=== PATIENT | female | born 1975 | race Caucasian/White ===

== ENCOUNTER 2021-11-28 09:40 | Outpatient (REF) | payer OTHER, SELFPAY ==
[2021-12-01 16:31] LABS: HPV mRNA E6/E7 rflx Not Detected (Not Detected)
== END 2021-11-28 09:41 | disposition home or self-care (01) ==
LOC: HO.LAB 09:40
PROVIDERS: PCP Internal Medicine; Visit Provider Advanced Practice Midwife
DX: Z01.419 Encounter for gynecological examination (general) (routine) without abnormal findings (principal); Z11.51 Encounter for screening for human papillomavirus (HPV)
CPT/HCPCS: 87624; 88142

== ENCOUNTER 2021-12-14 08:51 | Outpatient (REF) | payer OTHER, SELFPAY ==
--- NOTE | ~2021-12-14 | MM_ITS ---
EXAMINATION: MM SCREENING DIGITAL BREAST TOMOSYNTHESIS, BILATERAL CLINICAL INFORMATION: Screening. Asymptomatic. The lifetime risk of breast cancer based on the Tyrer-Cuzick Model is 11%. COMPARISON: Outside mammography: 06/07/2020, 09/04/2017, 08/28/2017 ([facility]) TECHNIQUE: Digital breast tomosynthesis is performed in both the craniocaudal and mediolateral oblique views along with computer-aided detection (CAD). Synthesized 2D images are generated from the tomosynthesis. FINDINGS: The breasts are heterogeneously dense, which may obscure small masses (ACR BI-RADS breast composition Category c). There are no significant masses, abnormal calcifications, or other abnormalities. Parenchymal pattern is similar to prior studies. There is no developing density or architectural abnormality. The axilla and skin contours are unremarkable. No significant changes. MM/MM tomosynthesis screening BI IMPRESSION: No mammographic evidence of malignancy. ASSESSMENT: BI-RADS 1: Negative RECOMMENDATION: Routine annual mammography screening. This patient's information was entered into a reminder system with a target due date for their next mammogram.
== END 2021-12-14 08:52 | disposition home or self-care (01) ==
LOC: HO.MAMMO 08:51
PROVIDERS: PCP Internal Medicine; Visit Provider Internal Medicine
DX: Z12.31 Encounter for screening mammogram for malignant neoplasm of breast (principal)
CPT/HCPCS: 77063; 77067

== ENCOUNTER 2022-01-08 09:12 | Outpatient (REF) | payer OTHER, SELFPAY ==
[2022-01-08 09:50] LABS: MANUAL DIFF FLAG NO
[2022-01-08 10:11] LABS: Basophils Percent Auto 0.8 % (0-2); Eosinophils Absolute Auto 0.1 X10*3/uL (0.0-0.4); Eosinophils Percent Auto 1.6 % (0-4); Hematocrit 38.8 % (37.0-47.0); Imm Gran Abs Auto 0.01 X10*3/uL (0.00-0.03); Imm Gran Pct Auto 0.2 % (0.0-0.4); Lymphocytes Absolute Auto 1.7 X10*3/uL (1.2-4.9); Lymphocytes Percent Auto 34.7 % (20-40); Mean Corpuscular HGB Conc 33.5 g/dl (31.0-35.0); Mean Corpuscular Hemoglobin 29.2 pg (27.0-33.0); Mean Corpuscular Volume 87.2 fL (80.0-98.0); Mean Platelet Volume 9.1 fL (9.4-12.3); Monocytes Absolute Auto 0.6 X10*3/uL (0.1-1.2); Monocytes Percent Auto 11.4 % (2-11); Neutrophils Absolute Auto 2.5 x10*3/uL (2.0-8.3); Neutrophils Percent Auto 51.3 % (45-73); Platelet Count 408 X10*3/uL (160-400); Red Blood Count 4.45 X10*6/uL (4.20-5.50); Red Cell Distribution Width 12.8 % (11.0-16.0); White Blood Count 4.9 X10*3/uL (4.8-10.8)
[2022-01-08 10:45] LABS: Alanine Aminotransferase 8 U/L (0-31); Albumin Level 4.1 g/dL (3.5-5.0); Alkaline Phosphatase 51 U/L (39-117); Anion Gap 12 (12-20); Aspartate Amino Transferase 13 U/L (5-31); Bilirubin Total 0.7 mg/dL (0.0-1.0); Blood Urea Nitrogen 13 mg/dL (9-16); Carbon Dioxide 24 mmol/L (22-29); Chloride 107 mmol/L (96-108); Cholesterol 210 mg/dL; Estimated Glomerular Filt Rate > 60; Glucose Fasting 96 mg/dL (60-99); HDL Cholesterol 46 mg/dL; LDL Cholesterol Calculated 149 mg/dl; Potassium 4.8 mmol/L (3.3-5.1); Sodium 138 mmol/L (135-145); Total Protein 7.4 g/dL (6.5-8.0); Triglycerides 78 mg/dL
[2022-01-08 11:06] LABS: Thyroid Stimulating Hormone 0.48 uIU/mL (0.32-4.0)
[2022-01-09 09:12] LABS: Thyroglobulin Antibodies <1 IU/mL (< or = 1); Thyroid Peroxidase Antibodies 26 IU/mL (<9)
[2022-01-12 14:25] LABS: Vitamin D 25-OH, D2 <4 ng/mL; Vitamin D 25-OH, D3 25 ng/mL; Vitamin D 25-OH, Total 25 ng/mL (30-100)
== END 2022-01-08 09:13 | disposition home or self-care (01) ==
LOC: HO.LAB 09:12
PROVIDERS: PCP Internal Medicine; Visit Provider Internal Medicine
DX: E66.3 Overweight (principal); E07.9 Disorder of thyroid, unspecified; R42 Dizziness and giddiness; E55.9 Vitamin D deficiency, unspecified
CPT/HCPCS: 36415; 80053; 80061; 82306; 84439; 84443; 85025; 86376; 86800

== ENCOUNTER → 2022-06-24 09:50 | Outpatient (BNVA) | payer OTHER, SELFPAY | PROVIDERS: PCP Physician Assistant; Visit Provider Physician Assistant | DX: Z12.11 Encounter for screening for malignant neoplasm of colon (principal) | CPT/HCPCS: 99202 ==

== ENCOUNTER 2022-07-23 09:56 | Outpatient (REF) | payer OTHER, SELFPAY ==
[2022-07-23 10:03] LABS: MANUAL DIFF FLAG NO
[2022-07-23 10:24] LABS: Basophils Absolute Auto 0.1 X10*3/uL (0.0-0.2); Basophils Percent Auto 1.1 % (0-2); Eosinophils Absolute Auto 0.1 X10*3/uL (0.0-0.4); Eosinophils Percent Auto 1.3 % (0-4); Hematocrit 39.6 % (37.0-47.0); Hemoglobin 13.2 g/dl (12.0-16.0); Imm Gran Abs Auto 0.01 X10*3/uL (0.00-0.03); Imm Gran Pct Auto 0.2 % (0.0-0.4); Lymphocytes Absolute Auto 1.8 X10*3/uL (1.2-4.9); Lymphocytes Percent Auto 34.1 % (20-40); Mean Corpuscular HGB Conc 33.3 g/dl (31.0-35.0); Mean Corpuscular Hemoglobin 28.8 pg (27.0-33.0); Mean Corpuscular Volume 86.5 fL (80.0-98.0); Mean Platelet Volume 9.2 fL (9.4-12.3); Monocytes Absolute Auto 0.6 X10*3/uL (0.1-1.2); Monocytes Percent Auto 10.9 % (2-11); Neutrophils Absolute Auto 2.8 x10*3/uL (2.0-8.3); Neutrophils Percent Auto 52.4 % (45-73); Platelet Count 369 X10*3/uL (160-400); Red Blood Count 4.58 X10*6/uL (4.20-5.50); Red Cell Distribution Width 12.4 % (11.0-16.0); White Blood Count 5.3 X10*3/uL (4.8-10.8)
[2022-07-23 10:59] LABS: Cholesterol 240 mg/dL; HDL Cholesterol 58 mg/dL; LDL Cholesterol Calculated 163 mg/dl; Triglycerides 95 mg/dL
[2022-07-23 11:12] LABS: Free T4 (Free Thyroxine) 1.24 ng/dL (0.71-1.85); Thyroid Stimulating Hormone 0.82 uIU/mL (0.32-4.0)
[2022-07-24 17:21] LABS: Thyroglobulin Antibodies <1 IU/mL (< or = 1)
[2022-07-24 21:25] LABS: Thyroid Peroxidase Antibodies 18 IU/mL (<9)
[2022-07-27 14:56] LABS: Vitamin D 25-OH, D2 <4 ng/mL; Vitamin D 25-OH, D3 25 ng/mL; Vitamin D 25-OH, Total 25 ng/mL (30-100)
== END 2022-07-23 09:57 | disposition home or self-care (01) ==
LOC: HO.LAB 09:56
PROVIDERS: PCP Internal Medicine; Visit Provider Internal Medicine
DX: E07.9 Disorder of thyroid, unspecified (principal); E06.3 Autoimmune thyroiditis; E78.5 Hyperlipidemia, unspecified; E55.9 Vitamin D deficiency, unspecified; E66.3 Overweight
CPT/HCPCS: 36415; 80061; 82306; 84439; 84443; 85025; 86376; 86800

== ENCOUNTER 2022-12-03 10:31 | Outpatient (REF) | payer OTHER, SELFPAY | END 2022-12-03 10:32 | disposition home or self-care (01) | LOC: HO.LAB 10:31 | PROVIDERS: PCP Internal Medicine; Visit Provider Advanced Practice Midwife | DX: Z01.419 Encounter for gynecological examination (general) (routine) without abnormal findings (principal); L73.9 Follicular disorder, unspecified | CPT/HCPCS: 87070; 87077; 87102; 87186; 87205 ==

== ENCOUNTER 2023-01-02 15:00 | Emergency (ER) | payer OTHER, SELFPAY ==
--- NOTE | ~2023-01-02 | XR_ITS ---
EXAMINATION: XR CHEST CLINICAL INFORMATION: Left-sided jaw pain. COMPARISON: None TECHNIQUE: 2 views of the chest were obtained. FINDINGS: No significant abnormality is noted involving the heart, lungs, mediastinum, bony thorax or soft tissues. XR/XR chest 2V IMPRESSION: No acute cardiopulmonary process.
--- NOTE | ~2023-01-02 | XR_ITS ---
EXAMINATION: XR SINUSES CLINICAL INFORMATION: Left-sided jaw pain COMPARISON: None TECHNIQUE: 4 FINDINGS: Paranasal sinuses appear clear without air-fluid levels. No fractures are identified. No radiodense foreign bodies. XR/XR sinus min 3V IMPRESSION: Unremarkable examination.
[2023-01-02 15:16] VITALS: BP 173/98; PULSE 75; RESP 18; TEMP 36.4; O2SAT 100; BMI 22.8
--- NOTE | 2023-01-02 15:16 | ED_ITS ---
HPI - General Adult General Chief complaint: General Medical <ALYSA Burns - Last Filed: 01/02/23 15:21> Stated complaint: jaw pain ,sinus pain <ALYSA Burns - Last Filed: 01/02/23 15:21> Time Seen by Provider: 01/02/23 16:36 <ALYSA Burns - Last Filed: 01/02/23 15:21> Source: patient <Reed Lewis MD - Last Filed: 01/02/23 18:39> Mode of arrival: ambulatory <Reed Lewis MD - Last Filed: 01/02/23 18:39> Limitations: no limitations <Reed Lewis MD - Last Filed: 01/02/23 18:39> History of Present Illness HPI narrative: seen yesterday by dentist for left mandible pain. No infection seen, TMJ was diagnosed. Now with increasing pain. <Reed Lewis MD - Last Filed: 01/02/23 18:39> Onset (ago): day(s) (4) <Reed Lewis MD - Last Filed: 01/02/23 18:39> Severity: mild <Reed Lewis MD - Last Filed: 01/02/23 18:39> Related Data Home medications: Home Medications Medication Instructions Recorded Confirmed omega-3 fatty acids 500 mg capsule 500 mg PO DAILY 01/23/22 08/01/22 Previous Rx's Medication Instructions Recorded cholecalciferol (vitamin D3) 25 25 mcg PO DAILY 90 days #90 caps 10/13/22 mcg (1,000 unit) capsule levothyroxine 75 mcg tablet 75 mcg PO DAILY 90 days #90 tabs 10/13/22 mupirocin calcium 2 % topical cream 1 appl topical BID 7 days #30 grams 12/06/22 amoxicillin 875 mg-potassium 1 tab PO BID #20 tabs 01/02/23 clavulanate 125 mg tablet <ALYAS Burns - Last Filed: 01/02/23 15:21> Allergies/adverse reactions: Allergies Allergy/AdvReac Type Severity Reaction Status Date / Time No Known Allergies Allergy Verified 01/02/23 15:15 <ALYSA Burns - Last Filed: 01/02/23 15:21> Review of Systems Review of Systems: Yes all other systems are reviewed and are negative <Reed Lewis MD - Last Filed: 01/02/23 18:39> ENT: Reports other (left mandible) <Reed Lewis MD - Last Filed: 01/02/23 18:39> [facility] Past Medical History Medical History: Medical History BPPV (benign paroxysmal positional vertigo) 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 Hypovitaminosis D Overweight (BMI 25.0-29.9) Physical exam <ALYSA Burns - Last Filed: 01/02/23 15:21> Surgical History: Surgical History History of appendectomy <ALYSA Burns - Last Filed: 01/02/23 15:21> Family History Family History: Family History Mother Hypercholesteremia Breast lump Father Heart attack Melanoma Hypercholesteremia Stroke <ALYSA Burns - Last Filed: 01/02/23 15:21> Social History Social History: Social History Housing: Apartment Alcohol intake: current Alcohol intake frequency: a few times a week Alcohol type: wine Patient Tobacco Use Status: Never used Tobacco e-Cigarette/Vaping Use: Never Used Second Hand Smoke Exposure: No Use of substances other than those prescribed or required for medical reasons: No Any prior treatment program specific to substance use: No Advance Directives: No Advance Directives Information Provided: No Patient : No service: No Current occupational status: employed 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 Current occupational exposures/hazards: No Sexual orientation: Lesbian/Falcon/Homosexual Gender identity: Female Cognitive needs: No Hearing needs: No Vision needs: No <ALYSA Burns - Last Filed: 01/02/23 15:21> Physical Exam ED Vital Signs: Vital Signs - 24 hr 01/02/23 15:16 Temperature 97.5 F Pulse Rate 75 Respiratory Rate 18 Blood Pressure 173/98 H Pulse Oximetry 100 Oxygen Delivery Method Room Air BMI result Body Mass Index 22.8 <ALYSA Burns - Last Filed: 01/02/23 15:21> Vital Signs - 24 hr 01/02/23 15:16 Temperature 97.5 F Pulse Rate 75 Respiratory Rate 18 Blood Pressure 173/98 H Pulse Oximetry 100 Oxygen Delivery Method Room Air BMI result Body Mass Index 22.8 <Reed Lewis MD - Last Filed: 01/02/23 18:39> Const General: healthy appearing <Reed Lewis MD - Last Filed: 01/02/23 18:39> Nutritional Appearance: average body habitus <Reed Lewis MD - Last Filed: 01/02/23 18:39> Orientation/consciousness: oriented to person and patient oriented x3 <Reed Lewis MD - Last Filed: 01/02/23 18:39> Limitations: no limitations <Reed Lewis MD - Last Filed: 01/02/23 18:39> HENMT Other: tenderness along mandible no swelling or erythema <Reed Lewis MD - Last Filed: 01/02/23 18:39> Head: Yes normal to inspection <Reed Lewis MD - Last Filed: 01/02/23 18:39> Ears: external ears normal <Reed Lewis MD - Last Filed: 01/02/23 18:39> General nose exam: Normal external nose present <Reed Lewis MD - Last Filed: 01/02/23 18:39> Mouth: Normal oral and palatal mucosa present and oropharynx normal <Reed Lewis MD - Last Filed: 01/02/23 18:39> Throat: Yes posterior oropharynx normal <Reed Lewis MD - Last Filed: 01/02/23 18:39> Eyes General: appearance normal, both eyes and all related structures <Reed Lewis MD - Last Filed: 01/02/23 18:39> Neck Neck: Yes normal visual inspection <Reed Lewis MD - Last Filed: 01/02/23 18:39> Chest Chest palpation & inspection: normal inspection of the chest <Reed Lewis MD - Last Filed: 01/02/23 18:39> Resp Auscultation: clear to auscultation bilaterally <Reed Lewis MD - Last Filed: 01/02/23 18:39> Cardio Jugular venous distension: no JVD <Reed Lewis MD - Last Filed: 01/02/23 18:39> Rate: regular rate <Reed Lewis MD - Last Filed: 01/02/23 18:39> Rhythm: regular rhythm <Reed Lewis MD - Last Filed: 01/02/23 18:39> Heart sounds: S1 normal heart sound present and S2 normal heart sound present <Reed Lewis MD - Last Filed: 01/02/23 18:39> GI Inspection: Yes normal to inspection <Reed Lewis MD - Last Filed: 01/02/23 18:39> Palpation (GI): Soft to palpation, nontender and No hepatosplenomegaly present <Reed Lewis MD - Last Filed: 01/02/23 18:39> Auscultation: normal bowel sounds <Reed Lewis MD - Last Filed: 01/02/23 18:39> General: Yes no CVA tenderness <Reed Lewis MD - Last Filed: 01/02/23 18:39> Back/Spine/Pelvis Back: no CVA tenderness <Reed Lewis MD - Last Filed: 01/02/23 18:39> Skin General skin exam: no rashes or lesions noted <Reed Lewis MD - Last Filed: 01/02/23 18:39> Neuro General: oriented to person and patient oriented x3 <Reed Lewis MD - Last Filed: 01/02/23 18:39> Cranial nerves: Yes CN's II-XII intact bilaterally <Reed Lewis MD - Last Filed: 01/02/23 18:39> Motor exam (neuro): 5/5 motor strength present throughout <Reed Lewis MD - Last Filed: 01/02/23 18:39> Extrem General: Yes normal to inspection <Reed Lewis MD - Last Filed: 01/02/23 18:39> Psych Appearance: grossly normal <Reed Lewis MD - Last Filed: 01/02/23 18:39> Course Course Course Narrative: RME-15:20pm 47yoF with PMHx of HLD and Danny's thyroiditis who is presenting to the ER with complaints of left-sided jaw pain that has been present since Friday that is progressively worsening although intermittent. Reports that she went to the dentist yesterday and they told her was not related to her teeth. She denies any dizziness, change in vision, recent falls or trauma, chest pain or shortness of breath, rashes, paresthesias, palpitations, nausea/vomiting, rashes, recent falls or trauma, dental pain or any other symptoms complaints or concerns at this time. Plan: Will obtain labs, chest x-ray and EKG. Patient sent back to the waiting room to be evaluated in the ED. <ALYSA Burns - Last Filed: 01/02/23 15:21> Reevaluation(s) Reevaluation #1: with elevated WBC and pain along mandible will treat for infection <Reed Lewis MD - Last Filed: 01/02/23 18:39> Time: 18:37 <Reed Lewis MD - Last Filed: 01/02/23 18:39> Medications Administered Discontinued Medications Generic Name Dose Route Start Last Admin Trade Name Freq PRN Reason Stop Dose Admin Amoxicillin/Clavulanate Potassium 875 mg 01/02/23 17:34 01/02/23 17:41 Amoxicillin/Potassium Clav 875 Mg Tablet PO 01/02/23 17:35 875 mg ONCE ONE Administration Ketorolac Tromethamine 30 mg 01/02/23 17:44 01/02/23 18:11 Ketorolac Tromethamine 30 Mg/Ml Vial IM 01/02/23 17:45 30 mg ONCE ONE Administration <ALYSA Burns - Last Filed: 01/02/23 15:21> Medications Administered Discontinued Medications Generic Name Dose Route Start Last Admin Trade Name Freq PRN Reason Stop Dose Admin Amoxicillin/Clavulanate Potassium 875 mg 01/02/23 17:34 01/02/23 17:41 Amoxicillin/Potassium Clav 875 Mg Tablet PO 01/02/23 17:35 875 mg ONCE ONE Administration Ketorolac Tromethamine 30 mg 01/02/23 17:44 01/02/23 18:11 Ketorolac Tromethamine 30 Mg/Ml Vial IM 01/02/23 17:45 30 mg ONCE ONE Administration <Reed Lewis MD - Last Filed: 01/02/23 18:39> Medical Decision Making Differential Diagnosis TMJ syndrome, sinusitis, dental infection <Reed Lewis MD - Last Filed: 01/02/23 18:39> Lab Data [facility] Lab Attestation statement: I reviewed the patient's lab results. <Reed Lewis MD - Last Filed: 01/02/23 18:39> very elevated WBC most likely secondary to infection <Reed Lewis MD - Last Filed: 01/02/23 18:39> Result Diagrams: 01/02/23 15:54 01/02/23 15:54 <ALYSA Burns - Last Filed: 01/02/23 15:21> Labs: Lab Results 01/02/23 01/02/23 01/02/23 Range/Units 15:54 15:54 15:54 WBC 16.4 H (4.8-10.8) X10*3/uL RBC 4.40 (4.20-5.50) X10*6/uL Hgb 12.9 (12.0-16.0) g/dl Hct 38.8 (37.0-47.0) % MCV 88.2 (80.0-98.0) fL MCH 29.3 (27.0-33.0) pg MCHC 33.2 (31.0-35.0) g/dl RDW 12.1 (11.0-16.0) % Plt Count 384 (160-400) X10*3/uL MPV 9.2 L (9.4-12.3) fL Immature Gran % (Auto) 0.4 (0.0-0.4) % Neut % (Auto) 80.6 H (45-73) % Lymph % (Auto) 10.5 L (20-40) % [place] % (Auto) 7.7 (2-11) % Eos % (Auto) 0.3 (0-4) % Baso % (Auto) 0.5 (0-2) % Lymph # (Auto) 1.7 (1.2-4.9) X10*3/uL [place] # (Auto) 1.3 H (0.1-1.2) X10*3/uL Eos # (Auto) 0.1 (0.0-0.4) X10*3/uL Baso # (Auto) 0.1 (0.0-0.2) X10*3/uL Abs Immat Gran (auto) 0.06 H (0.00-0.03) X10*3/uL Absolute Neuts (auto) 13.2 H (2.0-8.3) x10*3/uL Absolute Nucleated RBC 0.000 (0.0-0.012) X10*3/uL Nucleated RBC % (auto) 0.0 (0.0-0.2) /100WBC PT 11.4 (10.0-13.1) SEC INR 1.0 (0.9-1.1) Sodium 140 (135-145) mmol/L Potassium 3.8 D (3.3-5.1) mmol/L Chloride 108 (96-108) mmol/L Carbon Dioxide 23 (22-29) mmol/L Anion Gap 13 (12-20) BUN 9 (9-16) mg/dL Creatinine 0.71 (0.5-1.4) mg/dL Estim Creat Clear Calc 86.4 Estimated GFR > 60 Random Glucose 92 (60-115) mg/dL Calcium 9.0 (8.4-10.2) mg/dL Magnesium 2.0 (1.6-2.6) mg/dL Total Bilirubin 0.6 (0.0-1.0) mg/dL AST 14 (5-31) U/L ALT 14 (0-31) U/L Alkaline Phosphatase 53 (39-117) U/L Troponin I High Sens (<3.5-17.0) ng/L Total Protein 7.4 (6.5-8.0) g/dL Albumin 4.3 (3.5-5.0) g/dL TSH 0.51 (0.32-4.0) uIU/mL Influenza Type A (PCR) (Negative) Influenza Type B (PCR) (Negative) RSV RNA Qual (PCR) (Negative) SARS-CoV-2 RNA (RT-PCR) (Negative) 01/02/23 01/02/23 Range/Units 15:54 15:54 WBC (4.8-10.8) X10*3/uL RBC (4.20-5.50) X10*6/uL Hgb (12.0-16.0) g/dl Hct (37.0-47.0) % MCV (80.0-98.0) fL MCH (27.0-33.0) pg MCHC (31.0-35.0) g/dl RDW (11.0-16.0) % Plt Count (160-400) X10*3/uL MPV (9.4-12.3) fL Immature Gran % (Auto) (0.0-0.4) % Neut % (Auto) (45-73) % Lymph % (Auto) (20-40) % [place] % (Auto) (2-11) % Eos % (Auto) (0-4) % Baso % (Auto) (0-2) % Lymph # (Auto) (1.2-4.9) X10*3/uL [place] # (Auto) (0.1-1.2) X10*3/uL Eos # (Auto) (0.0-0.4) X10*3/uL Baso # (Auto) (0.0-0.2) X10*3/uL Abs Immat Gran (auto) (0.00-0.03) X10*3/uL Absolute Neuts (auto) (2.0-8.3) x10*3/uL Absolute Nucleated RBC (0.0-0.012) X10*3/uL Nucleated RBC % (auto) (0.0-0.2) /100WBC PT (10.0-13.1) SEC INR (0.9-1.1) Sodium (135-145) mmol/L Potassium (3.3-5.1) mmol/L Chloride (96-108) mmol/L Carbon Dioxide (22-29) mmol/L Anion Gap (12-20) BUN (9-16) mg/dL Creatinine (0.5-1.4) mg/dL Estim Creat Clear Calc Estimated GFR Random Glucose (60-115) mg/dL Calcium (8.4-10.2) mg/dL Magnesium (1.6-2.6) mg/dL Total Bilirubin (0.0-1.0) mg/dL AST (5-31) U/L ALT (0-31) U/L Alkaline Phosphatase (39-117) U/L Troponin I High Sens < 3.5 (<3.5-17.0) ng/L Total Protein (6.5-8.0) g/dL Albumin (3.5-5.0) g/dL TSH (0.32-4.0) uIU/mL Influenza Type A (PCR) NEGATIVE (Negative) Influenza Type B (PCR) NEGATIVE (Negative) RSV RNA Qual (PCR) NEGATIVE (Negative) SARS-CoV-2 RNA (RT-PCR) NEGATIVE (Negative) <ALYSA Burns - Last Filed: 01/02/23 15:21> Lab Results 01/02/23 01/02/23 01/02/23 Range/Units 15:54 15:54 15:54 WBC 16.4 H (4.8-10.8) X10*3/uL RBC 4.40 (4.20-5.50) X10*6/uL Hgb 12.9 (12.0-16.0) g/dl Hct 38.8 (37.0-47.0) % MCV 88.2 (80.0-98.0) fL MCH 29.3 (27.0-33.0) pg MCHC 33.2 (31.0-35.0) g/dl RDW 12.1 (11.0-16.0) % Plt Count 384 (160-400) X10*3/uL MPV 9.2 L (9.4-12.3) fL Immature Gran % (Auto) 0.4 (0.0-0.4) % Neut % (Auto) 80.6 H (45-73) % Lymph % (Auto) 10.5 L (20-40) % [place] % (Auto) 7.7 (2-11) % Eos % (Auto) 0.3 (0-4) % Baso % (Auto) 0.5 (0-2) % Lymph # (Auto) 1.7 (1.2-4.9) X10*3/uL [place] # (Auto) 1.3 H (0.1-1.2) X10*3/uL Eos # (Auto) 0.1 (0.0-0.4) X10*3/uL Baso # (Auto) 0.1 (0.0-0.2) X10*3/uL Abs Immat Gran (auto) 0.06 H (0.00-0.03) X10*3/uL Absolute Neuts (auto) 13.2 H (2.0-8.3) x10*3/uL Absolute Nucleated RBC 0.000 (0.0-0.012) X10*3/uL Nucleated RBC % (auto) 0.0 (0.0-0.2) /100WBC PT 11.4 (10.0-13.1) SEC INR 1.0 (0.9-1.1) Sodium 140 (135-145) mmol/L Potassium 3.8 D (3.3-5.1) mmol/L Chloride 108 (96-108) mmol/L Carbon Dioxide 23 (22-29) mmol/L Anion Gap 13 (12-20) BUN 9 (9-16) mg/dL Creatinine 0.71 (0.5-1.4) mg/dL Estim Creat Clear Calc 86.4 Estimated GFR > 60 Random Glucose 92 (60-115) mg/dL Calcium 9.0 (8.4-10.2) mg/dL Magnesium 2.0 (1.6-2.6) mg/dL Total Bilirubin 0.6 (0.0-1.0) mg/dL AST 14 (5-31) U/L ALT 14 (0-31) U/L Alkaline Phosphatase 53 (39-117) U/L Troponin I High Sens (<3.5-17.0) ng/L Total Protein 7.4 (6.5-8.0) g/dL Albumin 4.3 (3.5-5.0) g/dL TSH 0.51 (0.32-4.0) uIU/mL Influenza Type A (PCR) (Negative) Influenza Type B (PCR) (Negative) RSV RNA Qual (PCR) (Negative) SARS-CoV-2 RNA (RT-PCR) (Negative) 01/02/23 01/02/23 Range/Units 15:54 15:54 WBC (4.8-10.8) X10*3/uL RBC (4.20-5.50) X10*6/uL Hgb (12.0-16.0) g/dl Hct (37.0-47.0) % MCV (80.0-98.0) fL MCH (27.0-33.0) pg MCHC (31.0-35.0) g/dl RDW (11.0-16.0) % Plt Count (160-400) X10*3/uL MPV (9.4-12.3) fL Immature Gran % (Auto) (0.0-0.4) % Neut % (Auto) (45-73) % Lymph % (Auto) (20-40) % [place] % (Auto) (2-11) % Eos % (Auto) (0-4) % Baso % (Auto) (0-2) % Lymph # (Auto) (1.2-4.9) X10*3/uL [place] # (Auto) (0.1-1.2) X10*3/uL Eos # (Auto) (0.0-0.4) X10*3/uL Baso # (Auto) (0.0-0.2) X10*3/uL Abs Immat Gran (auto) (0.00-0.03) X10*3/uL Absolute Neuts (auto) (2.0-8.3) x10*3/uL Absolute Nucleated RBC (0.0-0.012) X10*3/uL Nucleated RBC % (auto) (0.0-0.2) /100WBC PT (10.0-13.1) SEC INR (0.9-1.1) Sodium (135-145) mmol/L Potassium (3.3-5.1) mmol/L Chloride (96-108) mmol/L Carbon Dioxide (22-29) mmol/L Anion Gap (12-20) BUN (9-16) mg/dL Creatinine (0.5-1.4) mg/dL Estim Creat Clear Calc Estimated GFR Random Glucose (60-115) mg/dL Calcium (8.4-10.2) mg/dL Magnesium (1.6-2.6) mg/dL Total Bilirubin (0.0-1.0) mg/dL AST (5-31) U/L ALT (0-31) U/L Alkaline Phosphatase (39-117) U/L Troponin I High Sens < 3.5 (<3.5-17.0) ng/L Total Protein (6.5-8.0) g/dL Albumin (3.5-5.0) g/dL TSH (0.32-4.0) uIU/mL Influenza Type A (PCR) NEGATIVE (Negative) Influenza Type B (PCR) NEGATIVE (Negative) RSV RNA Qual (PCR) NEGATIVE (Negative) SARS-CoV-2 RNA (RT-PCR) NEGATIVE (Negative) <Reed Lewis MD - Last Filed: 01/02/23 18:39> Independent Interpretation I performed an independent interpretation of an: Plain X-Ray (sinus films no sinusitus appreciated) <Reed Lewis MD - Last Filed: 01/02/23 18:39> Tests considered The following testing was considered but not selected: CT of face and jaw considered but patient currenlty is stable will treat empirically with abx <Reed Lewis MD - Last Filed: 01/02/23 18:39> Discharge Plan Discharge Clinical Impression: Dental infection <ALYSA Burns - Last Filed: 01/02/23 15:21> Patient Disposition: Home, Self-Care <ALYSA Burns - Last Filed: 01/02/23 15:21> Instructions: Dental Abscess (ED) <ALYSA Burns - Last Filed: 01/02/23 15:21> Prescriptions: New amoxicillin-pot clavulanate 875-125 mg tablet 1 tab PO BID Qty: 20 0RF No Action cholecalciferol (vitamin D3) 25 mcg (1,000 unit) capsule 25 mcg PO DAILY 90 Days Qty: 90 0RF levothyroxine 75 mcg tablet 75 mcg PO DAILY 90 Days Qty: 90 0RF mupirocin calcium 2 % cream 1 appl topical BID 7 Days Qty: 30 1RF Rx Instructions: apply a thin coat to the area for up to 7 days omega-3 fatty acids 500 mg capsule 500 mg PO DAILY Rx Instructions: 800mg EPA and 600mg DHA <ALYSA Burns - Last Filed: 01/02/23 15:21> Referrals: Tresa Barksdale MD [Primary Care Provider] - 1 week <ALYSA Burns - Last Filed: 01/02/23 15:21>
--- NOTE | 2023-01-02 15:18 | ECG_ITS ---
Test Reason : left sided jaw pain Blood Pressure : / mmHG Vent. Rate : 067 BPM Atrial Rate : 067 BPM P-R Int : 122 ms QRS Dur : 090 ms QT Int : 410 ms P-R-T Axes : 063 042 043 degrees QTc Int : 433 ms Normal sinus rhythm Normal ECG No previous ECGs available Referred By: Alysia David Electronically Signed By:Jude Robbins
[2023-01-02 16:02] LABS: MANUAL DIFF FLAG NO
[2023-01-02 16:09] LABS: Basophils Absolute Auto 0.1 X10*3/uL (0.0-0.2); Basophils Percent Auto 0.5 % (0-2); Eosinophils Absolute Auto 0.1 X10*3/uL (0.0-0.4); Eosinophils Percent Auto 0.3 % (0-4); Hematocrit 38.8 % (37.0-47.0); Hemoglobin 12.9 g/dl (12.0-16.0); Imm Gran Abs Auto 0.06 X10*3/uL (0.00-0.03); Imm Gran Pct Auto 0.4 % (0.0-0.4); Lymphocytes Absolute Auto 1.7 X10*3/uL (1.2-4.9); Lymphocytes Percent Auto 10.5 % (20-40); Mean Corpuscular HGB Conc 33.2 g/dl (31.0-35.0); Mean Corpuscular Hemoglobin 29.3 pg (27.0-33.0); Mean Corpuscular Volume 88.2 fL (80.0-98.0); Mean Platelet Volume 9.2 fL (9.4-12.3); Monocytes Absolute Auto 1.3 X10*3/uL (0.1-1.2); Monocytes Percent Auto 7.7 % (2-11); Neutrophils Absolute Auto 13.2 x10*3/uL (2.0-8.3); Neutrophils Percent Auto 80.6 % (45-73); Platelet Count 384 X10*3/uL (160-400); Red Cell Distribution Width 12.1 % (11.0-16.0); White Blood Count 16.4 X10*3/uL (4.8-10.8)
[2023-01-02 16:16] LABS: Prothrombin Time 11.4 SEC (10.0-13.1)
[2023-01-02 16:32] LABS: Alanine Aminotransferase 14 U/L (0-31); Albumin Level 4.3 g/dL (3.5-5.0); Alkaline Phosphatase 53 U/L (39-117); Anion Gap 13 (12-20); Aspartate Amino Transferase 14 U/L (5-31); Bilirubin Total 0.6 mg/dL (0.0-1.0); Blood Urea Nitrogen 9 mg/dL (9-16); Carbon Dioxide 23 mmol/L (22-29); Chloride 108 mmol/L (96-108); Creatinine Clr Calc Pharmacy 86.4; Estimated Glomerular Filt Rate > 60; Glucose Random 92 mg/dL (60-115); Potassium 3.8 mmol/L (3.3-5.1); Sodium 140 mmol/L (135-145); Total Protein 7.4 g/dL (6.5-8.0)
[2023-01-02 16:37] LABS: Troponin-I High Sensitivity < 3.5 ng/L (<3.5-17.0)
[2023-01-02 16:43] LABS: Influenza A PCR NEGATIVE (Negative); Influenza B PCR NEGATIVE (Negative); Resp Syncy Virus RNA Qual PCR NEGATIVE (Negative); SARS COV2 PCR INHOUSE NEGATIVE (Negative)
[2023-01-02 16:49] LABS: TSH reflex Free T4 0.51 uIU/mL (0.32-4.0)
[2023-01-02] MEDS: Amoxicillin/Potassium Clav 875 MG TABLET PO (17:41)
[2023-01-02] MEDS: Ketorolac Tromethamine 30 MG/ML VIAL IM (18:11)
== END 2023-01-02 18:55 | disposition home or self-care (01) ==
PROVIDERS: Physician Assistant Medical; Emergency Provider Emergency Medicine; PCP Internal Medicine
DX: K04.7 Periapical abscess without sinus (principal); R68.84 Jaw pain; J34.89 Other specified disorders of nose and nasal sinuses; Z20.822 Contact with and (suspected) exposure to COVID-19; Z20.828 Contact with and (suspected) exposure to other viral communicable diseases; Z79.899 Other long term (current) drug therapy
CPT/HCPCS: 0241U; 70220; 71046; 80053; 83735; 84443; 84484; 85025; 85610; 93005; 96372; 99284; J1885

== ENCOUNTER 2023-03-26 08:54 | Outpatient (REF) | payer OTHER, SELFPAY ==
[2023-03-26 09:25] LABS: MANUAL DIFF FLAG NO
[2023-03-26 09:32] LABS: Basophils Absolute Auto 0.1 X10*3/uL (0.0-0.2); Basophils Percent Auto 1.1 % (0-2); Eosinophils Absolute Auto 0.1 X10*3/uL (0.0-0.4); Eosinophils Percent Auto 2.1 % (0-4); Hematocrit 38.9 % (37.0-47.0); Hemoglobin 13.1 g/dl (12.0-16.0); Imm Gran Abs Auto 0.01 X10*3/uL (0.00-0.03); Imm Gran Pct Auto 0.2 % (0.0-0.4); Lymphocytes Absolute Auto 1.8 X10*3/uL (1.2-4.9); Lymphocytes Percent Auto 34.3 % (20-40); Mean Corpuscular HGB Conc 33.7 g/dl (31.0-35.0); Mean Corpuscular Hemoglobin 29.2 pg (27.0-33.0); Mean Corpuscular Volume 86.6 fL (80.0-98.0); Mean Platelet Volume 9.3 fL (9.4-12.3); Monocytes Absolute Auto 0.6 X10*3/uL (0.1-1.2); Monocytes Percent Auto 11.6 % (2-11); Neutrophils Absolute Auto 2.7 x10*3/uL (2.0-8.3); Neutrophils Percent Auto 50.7 % (45-73); Platelet Count 389 X10*3/uL (160-400); Red Blood Count 4.49 X10*6/uL (4.20-5.50); Red Cell Distribution Width 12.1 % (11.0-16.0); White Blood Count 5.3 X10*3/uL (4.8-10.8)
[2023-03-26 10:32] LABS: Alanine Aminotransferase 12 U/L (0-31); Albumin Level 4.3 g/dL (3.5-5.0); Alkaline Phosphatase 54 U/L (39-117); Anion Gap 11 (12-20); Aspartate Amino Transferase 16 U/L (5-31); Blood Urea Nitrogen 12 mg/dL (9-16); Calcium 9.1 mg/dL (8.4-10.2); Carbon Dioxide 24 mmol/L (22-29); Chloride 108 mmol/L (96-108); Cholesterol 222 mg/dL; Estimated Glomerular Filt Rate > 60; Glucose Fasting 93 mg/dL (60-99); HDL Cholesterol 48 mg/dL; LDL Cholesterol Calculated 161 mg/dl; Potassium 4.7 mmol/L (3.3-5.1); Sodium 138 mmol/L (135-145); Total Protein 7.5 g/dL (6.5-8.0); Triglycerides 68 mg/dL
[2023-03-26 10:36] LABS: Thyroid Stimulating Hormone 0.52 uIU/mL (0.32-4.0); Vitamin D 25-OH Total 26.2 ng/mL (>30)
== END 2023-03-26 08:55 | disposition home or self-care (01) ==
LOC: HO.LAB 08:54
PROVIDERS: PCP Internal Medicine; Visit Provider Nurse Practitioner Family
DX: Z00.00 Encounter for general adult medical examination without abnormal findings (principal); E55.9 Vitamin D deficiency, unspecified; E06.3 Autoimmune thyroiditis; R42 Dizziness and giddiness; E78.5 Hyperlipidemia, unspecified
CPT/HCPCS: 36415; 80053; 80061; 82306; 84443; 85025

== ENCOUNTER 2023-04-02 08:55 | Outpatient (REF) | payer OTHER, SELFPAY ==
--- NOTE | ~2023-04-02 | MM_ITS ---
EXAMINATION: MM SCREENING DIGITAL BREAST TOMOSYNTHESIS, BILATERAL CLINICAL INFORMATION: Screening. Asymptomatic. The lifetime risk of breast cancer based on the Tyrer-Cuzick Model is 20%. COMPARISON: Mammography: 12/14/2021, 06/07/2020, 09/04/2017, 08/28/2017 TECHNIQUE: Digital breast tomosynthesis is performed in both the craniocaudal and mediolateral oblique views along with computer-aided detection (CAD). Synthesized 2D images are generated from the tomosynthesis. FINDINGS: The breasts are heterogeneously dense, which may obscure small masses (ACR BI-RADS breast composition Category c). Right breast parenchymal pattern is similar to prior studies and there is no developing density or architectural abnormality. Neither breast shows abnormal calcifications. The bilateral axilla and skin contours are unremarkable. Left MLO view has an asymmetric density mid upper breast 6 cm from nipple without CC correlate. Finding is most likely summation artifact or incompletely compressed glandular tissue. Patient will be recalled to confirm. MM/MM tomosynthesis screening BI IMPRESSION: Left: -Asymmetric density mid upper breast on MLO view likely summation artifact or incompletely compressed glandular tissue. Right: -No mammographic evidence of malignancy. ASSESSMENT: BI-RADS 0: Incomplete - Need Additional Imaging Evaluation RECOMMENDATION: 1. Additional views left breast (spot MLO, standard ML). 2. Targeted ultrasound if warranted after review of the additional views. 3. Radiology department staff will contact the patient for additional imaging. This patient's information was entered into a reminder system with a target due date for their next mammogram.
== END 2023-04-02 08:56 | disposition home or self-care (01) ==
LOC: HO.MAMMO 08:55
PROVIDERS: PCP Internal Medicine; Visit Provider Internal Medicine
DX: Z12.31 Encounter for screening mammogram for malignant neoplasm of breast (principal)
CPT/HCPCS: 77063; 77067

== ENCOUNTER 2023-04-22 13:47 | Outpatient (REF) | payer OTHER, SELFPAY ==
--- NOTE | ~2023-04-22 | MM_ITS ---
EXAMINATION: MM DIAGNOSTIC DIGITAL BREAST TOMOSYNTHESIS, LEFT CLINICAL INFORMATION: Recall from screening for asymmetric density mid upper left breast on MLO view likely summation artifact or incompletely compressed glandular tissue. Family history breast cancer, mother. TC score 20%. COMPARISON: Prior mammography exams including most recent 04/02/2023. TECHNIQUE: Digital breast tomosynthesis is performed. 2D images are generated from the tomosynthesis. The following views are obtained: Spot MLO, standard ML. FINDINGS: The breasts are heterogeneously dense, which may obscure small masses (ACR BI-RADS breast composition Category c). Additional views show no significant mass, architectural abnormality, or abnormal calcifications. There are no significant changes from prior studies. Results are discussed with the patient at time of visit. MM/MM tomosynthesis added views L IMPRESSION: No mammographic evidence of malignancy. ASSESSMENT: BI-RADS 1: Negative RECOMMENDATION: Routine annual mammography screening. This patient's information was entered into a reminder system with a target due date for their next mammogram.
== END 2023-04-22 13:48 | disposition home or self-care (01) ==
LOC: HO.MAMMO 13:47
PROVIDERS: PCP Internal Medicine; Visit Provider Advanced Practice Midwife
DX: R92.2 Inconclusive mammogram (principal)
CPT/HCPCS: 77061; 77065

== ENCOUNTER 2023-12-10 11:08 | Outpatient (AMB) | payer OTHER, SELFPAY ==
--- NOTE | 2023-12-10 11:09 | A.OFFVIS_ITS ---
Intake Vital Signs 12/10/23 11:14 Height 5 ft 4 in Weight 142 lb BMI 24.4 BP 104/66 Intake Visit Reasons: Annual Innovation Manager: Innovation Manager Present (Ayana) Allergies amoxicillin Allergy (Intermediate, Verified 12/10/23 11:13) Rash Is last menstrual period known: Yes Last menstrual period: 11/12/23 HPI HPI Comments History of Present Illness Details She is a premenopausal woman presenting for annual examination. Doing well with no concerns. She tries to eat healthy and stays active with exercise. Regular monthly menses q 26-28d, normal flow. Currently is sexually active same sex partner. She denies vaginal itching and irritation. STI screening offered; she declined. Denies family history of breast, ovarian or colon cancer. Last pap smear 2021, negative. Mammogram: UTD. 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 D Physical exam Overweight (BMI 25.0-29.9) Family history of melanoma Surgical History History of appendectomy Family History (Updated 12/10/23 @ 11:31 by Bushra Slaughter CNM) Mother Hypercholesteremia Breast lump Breast cancer, Onset Age: 74 Father Heart attack Melanoma Hypercholesteremia Stroke Social History Housing: Apartment Alcohol intake: current Alcohol intake frequency: a few times a week Alcohol type: wine Patient Tobacco Use Status: Never used Tobacco e-Cigarette/Vaping Use: Never Used Second Hand Smoke Exposure: No service: No Current occupational status: employed 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 Current occupational exposures/hazards: No Sexual orientation: Lesbian/Falcon/Homosexual Gender identity: Female Cognitive needs: No Hearing needs: No Vision needs: No Female Reproductive History Menstrual Date of last menstrual period: 11/12/23 Total pregnancies: 0 Date of last pap smear: 11/28/21 (neg pap and hpv) Date of Mammogram: 04/22/23 (Birad 1) Review of Systems Const All systems reviewed & are unremarkable except as noted in HPI and below Reports as per HPI Eyes Reports no additional complaints ENT Reports no additional complaints Card Reports no additional complaints Resp Reports no additional complaints GI Reports as per HPI and Reports no additional complaints Reports as per HPI Musc Reports no additional complaints Skin/Breast Reports as per HPI Neuro Reports no additional complaints Psych Reports no additional complaints Endo Reports no additional complaints Donald/Lymph Reports no additional complaints Aller/Immun Reports no additional complaints Physical Exam Vital Signs: Last Vital Signs BP 104/66 12/10/23 11:14 BMI result Body Mass Index 24.4 Const General: cooperative, healthy appearing, no acute distress, well developed and alert Orientation/consciousness: patient oriented x3 HEENT Head: Yes normal to inspection Eyes General: appearance normal, both eyes and all related structures Neck Neck: Yes normal visual inspection Thyroid: Thyroid normal Chest Chest palpation & inspection: normal inspection of the chest and other (no puckering, dimpling, peau de orange, retraction, discharge, masses) Breast/axilla inspection: normal inspection of the breasts Breast/axilla palpation: normal palpation of the breasts Resp Effort & Inspection: normal respiratory effort GI Inspection: Yes normal to inspection Palpation (GI): Soft to palpation Rectal Exam - Female: deferred General: Yes bladder normal to palpation External Female Exam: normal external appearance and normal appearance of the urethra Speculum Exam - Vagina: normal appearance of the vagina, normal palpation and normal vaginal discharge Speculum Exam - Cervix: normal appearance of the cervix and normal palpation Bimanual exam- vagina & uterus: normal bimanual exam, normal palpation, uterine size normal, bladder normal to palpation, normal palpation and non-tender Bimanual Exam- Adnexa, other: no masses Skin General skin exam: no rashes or lesions noted Rashes: no rashes Neuro General: patient oriented x3 Cognition (Neuro): normal cognition Extrem General: Yes normal to inspection Psych Attitude: cooperative Thought process: Normal thought process present Assessment & Plan Assessment & Plan (1) Encounter for well woman exam with routine gynecological exam: Code(s): Z01.419 - Encounter for gynecological examination (general) (routine) without abnormal findings Plan Discussed: Current recommendations for pap smears per ASCCP guidelines. Breast awareness and periodic breast exams. Maintain a healthy lifestyle including a well balanced diet and routine exercise. Use condoms for STI and prevention. Mammogram yearly. All of her questions and concerns were addressed to the best of my ability. RTO in one year for annual insurance defense paralegal examination. This note is constructed using voice recognition software. While every effort has been made to ensure accuracy, reimbursement specialist errors may have been included. Coding Level of Care Code Est Pt Prev Care 40-64y(71742) Diagnoses Encounter for well woman exam with routine gynecological exam Z01.419
[2023-12-10 11:14] VITALS: BP 104/66; BMI 24.4
== END 2023-12-10 11:45 | disposition home or self-care (01) ==
LOC: HO.HWS 11:08
PROVIDERS: PCP Internal Medicine; Visit Provider Advanced Practice Midwife
DX: Z01.419 Encounter for gynecological examination (general) (routine) without abnormal findings (principal)
CPT/HCPCS: 99396

== ENCOUNTER → 2023-12-10 11:08 | Outpatient (BNVA) | payer OTHER, SELFPAY | PROVIDERS: PCP Internal Medicine; Visit Provider Advanced Practice Midwife | DX: Z01.419 Encounter for gynecological examination (general) (routine) without abnormal findings (principal) | CPT/HCPCS: 99396 ==

== ENCOUNTER 2024-03-24 10:08 | Outpatient (AMB) | payer OTHER, SELFPAY ==
[2024-03-24 10:19] VITALS: BP 118/76; BMI 23.9
--- NOTE | 2024-03-24 10:19 | A.OFFPC_ITS ---
Vital Signs 03/24/24 10:19 Height 5 ft 4 in Weight 139 lb BMI 23.9 BP 118/76 Blood Pressure Location Rt brachial Position Sitting Intake Visit Reasons: pe Intake Note: Patient here for a physical exam Pressed Or Blown Glass Worker Required: No Accompanied by: Self / Same As Patient Allergies amoxicillin Allergy (Intermediate, Verified 03/24/24 10:37) Rash Medication List - Last Reconciled 03/24/24 by Tresa Caicedo MD cholecalciferol (vitamin D3) 25 mcg PO DAILY 90 days Lactobac no.51-Bifidobact no.4 50 billion cell (up4 Probiotics Ultra) caps PO DAILY levothyroxine 75 mcg PO DAILY 90 days Tobacco use date assessed: 03/24/24 Dental Screening Dental Screen Date: 03/24/24 Did you have a dental visit in the last 12 months?: Yes Did you have a dental problem in the last 6 months where you did not have access to dental care?: No Was dental information given to patient?: Patient has dentist HPI HPI Comments History of Present Illness Details This is a 48-year-old female that comes for her physical exam. Last mammogram was April 2023 and already has an appointment for April 2024. Pap smear done 2021 was normal with HPV negative. Will be referred for colonoscopy through open access. No chest pain or shortness of breath. Family history of early CAD and I recommend to start [id number] aspirin. Has a murmur and an echocardiogram will be ordered. [facility] Medical History (Updated 03/24/24 @ 10:54 by Tresa Caicedo MD) Pruritus 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 Hypovitaminosis D Physical exam Overweight (BMI 25.0-29.9) Family history of melanoma Surgical History History of appendectomy Family History Mother Hypercholesteremia Breast lump Breast cancer, Onset Age: 74 Father Heart attack Melanoma Hypercholesteremia Stroke Social History Housing: Apartment Alcohol intake: current Alcohol intake frequency: a few times a week Alcohol type: wine Patient Tobacco Use Status: Never used Tobacco e-Cigarette/Vaping Use: Never Used Second Hand Smoke Exposure: No service: No Current occupational status: employed 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 1. Little interest or pleasure in doing things: not at all 2. Feeling down, depressed, or hopeless: not at all 3. Trouble falling or staying asleep, or sleeping too much: not at all 4. Feeling tired or having little energy: not at all 5. Poor appetite or overeating: not at all 6. Feeling bad about yourself - or that you are a failure or have let yourself or your family down: not at all 7. Trouble concentrating on things, such as reading the newspaper or watching television: not at all 8. Moving or speaking so slowly that other people could have noticed. Or the opposite - being so fidgety or restless that you have been moving around a lot more than usual: not at all 9. Thoughts that you would be better off or of hurting yourself in some way: not at all Total score: 0 Depression Screening Interpretation: Negative Depression Screening Done: Yes 48096 - PHQ-9 Billing: Yes Source: Developed by Drs. Alex Mcdonald, Erica Moreira, Nam Benjamin and colleagues, with an educational jean from [employer]. Thrive Questionnaire Date Thrive assessed: 03/24/24 I am a: Patient What is your living situation today?: I have a steady place to live Within the past 12 months, did the food you bought not last and you didn't have the money to get more?: Never true Within the past 12 months, did you worry whether your food would run out before you got money to buy more?: Never true Do you have trouble paying for medicines?: No Do you have trouble getting transportation to medical appointments?: No Do you have trouble paying your heating and electricity bill?: No Do you have trouble taking care of your child, family member or friend?: No Do you have trouble with day-to-day activities such as bathing, preparing meals, shopping, managing finances, etc.?: No Are you currently unemployed and looking for a job?: No Are you interested in more education?: No Please select the resources that you would like help with: None Currently or been in a relationship where the following occur: no concerns reported THRIVE Score: 0 AUDIT C Alcohol Use Questionnaire (AUDIT-C) 1. How often do you have a drink containing alcohol?: 2-3 times a week 2. How many drinks containing alcohol do you have on a typical day when you are drinking?: 1 or 2 3. How often do you have six or more drinks on one occasion?: Never Total Score: 3 ANURAG-7 AMB Questionnaire ANURAG-7 Date ANURAG - 7 assessed: 03/24/24 Feeling nervous, anxious, or on edge: 0 = Not at all Not being able to stop or control worryin = Not at all Worrying too much about different things: 0 = Not at all Trouble relaxin = Not at all Being so restless that it is hard to sit still: 0 = Not at all Becoming easily annoyed or irritable: 0 = Not at all Feeling afraid as if something awful might happen: 0 = Not at all Total ANURAG-7 score (0-4 normal; 5-9 mild; 10-14 moderate; 15-21 severe): 0 Source: Developed by Drs. Alex Mcdonald, Erica Moreira, Nam Benjamin and colleagues, with an educational jean from [employer]. ANURAG-7 Assessment Billing ANURAG-7 Assessment Tool: ANURAG-7 Assessment 20497 Review of Systems Const All systems reviewed & are unremarkable except as noted in HPI and below Eyes Reports no additional complaints, Denies change in vision and Denies other visual disturbances Card Denies chest pain at rest, Denies chest pain with activity, Denies edema, Denies irregular heart rhythm, Denies claudication, Denies dyspnea, Denies dyspnea on exertion, Denies orthopnea, Denies paroxysmal nocturnal dyspnea and Denies slow heart rate Resp Denies cough, Denies dyspnea and Denies dyspnea on exertion Musc Denies abnormal gait, Denies atrophy, Denies deformity and Denies limited range of motion Skin/Breast Denies bleeding lesions, Denies changing lesions and Denies rash Neuro Denies abnormal gait, Denies behavioral changes, Denies confusion and Denies lack of coordination Psych Denies behavioral changes and Denies confusion Physical exam (Primary Care) Vital Signs: Last Vital Signs BP 118/76 03/24/24 10:19 BMI result Body Mass Index 23.9 Tobacco/Smoking Status: Tobacco use Status Tobacco use date assessed 03/24/24 03/24/24 10:24 Patient Tobacco Use Status Never used Tobacco 03/24/24 10:24 e-Cigarette/Vaping Use Never Used 03/24/24 10:24 PHQ-9: PHQ-9 Score PHQ-9: Total score 0 03/24/24 10:38 Depression Screening Interpretation: Negative Thrive Assessment: Date of Thrive Assessment Date Thrive assessed 03/24/24 03/24/24 10:25 Currently or been in a relationship where the following occur: no concerns reported Const General: No confusion Orientation/consciousness: patient oriented x3 and No confusion HENMT Head: Yes normal to inspection, Yes normocephalic and Yes atraumatic Ears: external ears normal Eyes General: appearance normal, both eyes and all related structures Eyelids: Yes eyelids normal Conjunctivae: conjunctivae normal Neck Neck: Yes normal visual inspection and Yes supple Resp Effort & Inspection: normal respiratory effort Auscultation: clear to auscultation bilaterally Cardio Jugular venous distension: no JVD Rate: regular rate Rhythm: regular rhythm Heart sounds: Murmur heart sound present GI Inspection: Yes normal to inspection Palpation (GI): Soft to palpation and nontender Auscultation: normal bowel sounds Skin General skin exam: no rashes or lesions noted Neuro General: patient oriented x3, no focal motor deficits and No confusion Extrem General: Yes full ROM Psych Appearance: grossly normal Assessment and Plan Assessment & Plan (1) Adult general medical exam: Code(s): Z00.00 - Encounter for general adult medical examination without abnormal findings Plan: Repeat in a year. Orders: Orders Lipid Panel Today E78.5 - Hyperlipidemia, unspecified Thyroid Stimulating Hormone Today E06.3 - Autoimmune thyroiditis CA echo transthoracic complete Today R01.1 - Cardiac murmur, unspecified Vitamin D 25-OH Total Today E55.9 - Vitamin D deficiency, unspecified PT Evaluation and Treatment Today H81.10 - Benign paroxysmal vertigo, unspecified ear Referrals Open Access Screening Colonoscopy Referral Z12.11 - Encounter for screening for malignant neoplasm of colon Coding Level of Care Code Est Pt Prev Care 40-64y(74329) Diagnoses Adult general medical exam Z00.00 Additional Codes ANURAG-7 Assessment Billing - ANURAG-7 Assessment Tool: ANURAG-7 Assessment 58161 ([id number]) Time Spent (min) 30
== END 2024-03-24 10:56 | disposition home or self-care (01) ==
PROVIDERS: Visit Provider Internal Medicine
DX: Z00.00 Encounter for general adult medical examination without abnormal findings (principal)
CPT/HCPCS: 99396

== ENCOUNTER 2024-04-07 07:09 | Outpatient (REF) | payer OTHER, SELFPAY ==
[2024-04-07 09:04] LABS: Cholesterol 202 mg/dL (<200); HDL Cholesterol 55 mg/dL (>40); LDL Cholesterol Calculated 130 mg/dL (<100); Triglycerides 86 mg/dL (<150)
[2024-04-07 09:08] LABS: Thyroid Stimulating Hormone 0.48 uIU/mL (0.32-4.0); Vitamin D 25-OH Total 19.7 ng/mL (>30)
== END 2024-04-07 07:10 | disposition home or self-care (01) ==
LOC: HO.LAB 07:09
PROVIDERS: PCP Internal Medicine; Visit Provider Internal Medicine
DX: E06.3 Autoimmune thyroiditis (principal); E78.5 Hyperlipidemia, unspecified; E55.9 Vitamin D deficiency, unspecified
CPT/HCPCS: 36415; 80061; 82306; 84443

== ENCOUNTER → 2024-04-21 07:49 | Outpatient (REF) | payer OTHER, SELFPAY ==
--- NOTE | 2024-04-21 07:53 | CA_ITS ---
Transthoracic Echocardiogram Patient (Last, First, Middle): Nathalie Malone, Gender: Female Date of : 1975 Age: 48 Procedure Date: 04/21/2024 Procedure Type: Transthoracic Echocardiogram Location: OP Height: 162.56 cm Weight: 62.6 kg BSA: 1.67 m2 Heart Rate: bpm BP: 118 / 72 mmHg Licensed Occupational Therapy Assistant: PETRA Referring MD: Tresa Caicedo MD Acid Patroller: Arturo Valadez MD Symptoms: R01.1 - Cardiac murmur, unspecified Study Quality: Adequate ECG Rhythm: Sinus Conclusions: - Normal study Findings Left Ventricle Normal left ventricular size, thickness, and systolic function. The visually estimated ejection fraction is between 60-65%. Spectral Doppler is indicative of a normal filling pattern. Peak GLS is -19.7%, within normal limits. Right Ventricle Normal right ventricular cavity size and systolic function. Atria Both atria are normal in size. There is lipomatous hypertrophy of the interatrial septum. There is no evidence of interatrial shunt. Aortic Valve Normal aortic valve structure and function. There is no aortic valve stenosis. There is no aortic valve regurgitation. Mitral Valve Normal mitral valve structure and function. Pulmonic Valve The pulmonic valve is likely normal. There is trace pulmonic valve regurgitation. Tricuspid Valve Normal tricuspid valve structure. There is trace tricuspid valve regurgitation. The right ventricular systolic pressure is normal. The right ventricular systolic pressure is 23 mmHg. Normal right atrial pressure. There is no evidence of pulmonary hypertension. Great Vessels The pulmonary artery was not well visualized. There is no dilatation of the ascending aorta measuring 2.60 cm. There is no evidence of plaque in the aorta. Venous The inferior vena cava is normal in size and collapses greater than 50% with inspiration. Pericardium/Pleural There is no evidence of pericardial effusion. Prior Study Comparison No prior study available for comparison. Measurements 2D Linear Measurements RVIDd: 3.29 IVSd: 0.68 0.6-0.9/0.6-1.0 cm LVIDd: 5.04 3.9-5.3/4.2-5.9 cm LVIDd Index: 3.02 2.4-3.2/2.2-3.1 cm/m2 LVIDs: 3.33 2.0-3.6 cm LVPWd: 0.89 0.7-1.1 cm LA Diam: 3.00 2.7-3.8/3.0-4.0 cm LAIDs Index: 1.80 1.5-2.3 cm/m2 LV Mass: 166.94 67-162/88-224 g LV Mass Index: 99.96 43-95/49-115 g/m2 LVOT Diam: 2.00 3.0+(-)1.3 cm 2D Volumes LA ESV A/L: 22.50 22-52/18-58 ML/M2 RA ESV A/L: 16.40 19-21 ML/M2 2D Systolic Function EF Teich: 62.40 >55% EF 4C: 61.40 >55% EF 2C: 60.00 >55% EF BiP: 61.00 >55% Mitral Valve MV Pk E: 0.78 MV PK A: 0.54 MV Decel Time: 207.00 E/A: 1.50 E'Lateral: 13.10 E'Medial: 8.70 E/E' Med: 9.00 E/E' Lat: 6.00 PHT: 61.00 MVA PHT: 3.61 Decel Mckean: 3.77 Aortic Valve AoV Pk Pedro: 1.37 AoV Mn Pedro: 0.95 AoV VTI: 0.32 AoV Pk Grad: 8.00 Aov Mn Grad: 4.00 AMA Cont.VTI: 2.07 LVOT LVOT Pk Pedro: 0.99 LVOT Mn Pedro: 0.63 LVOT VTI: 0.21 LVOT Pk Grad: 4.00 LVOT Mn Grad: 2.00 LVOT Diam: 2.00 LVOT Area: 3.14 Diastolic Function MV Pk E: 0.78 MV Pk A: 0.54 E/A: 1.50 E'Medial: 8.70 E/E' Med: 9.00 E' Laterial: 13.10 E/E' Lat: 6.00 IVC Diam Insp: 0.64 IVC Diam Exp: 1.75 Right Ventricle TAPSE (mm): 19.50 TVS' Pedro: 10.40 Tricuspid Valve TR Pk Pedro: 2.24 TR Pk Grad: 20.00 RA Press: 3.00 RVSP: 23.00 IVC Diam Exp: 1.75 IVC Diam Insp: 0.64 Great Vessels Aorta Sinus of Valsalva: 2.79 2.0-3.[address] [place]: 2.32 1.7-3.4 cm Ao Asc: 2.60 2.1-3.4 cm Ao Arch: 2.40 Updated in Other Vendor System with Status of Final Arturo Valadez MD electronically signed on 04/21/2024 4:56:02 PM with status of Final
== END ==
LOC: HO.CARD 07:49
PROVIDERS: PCP Internal Medicine; Visit Provider Internal Medicine
DX: R01.1 Cardiac murmur, unspecified (principal)
CPT/HCPCS: 93306; 93356

== ENCOUNTER → 2024-04-21 07:53 | Outpatient (BNV) | payer OTHER, SELFPAY | PROVIDERS: PCP Internal Medicine; Visit Provider Internal Medicine Cardiovascular Disease | DX: R01.1 Cardiac murmur, unspecified (principal) | CPT/HCPCS: 93306; 93356 ==

== ENCOUNTER 2024-04-28 09:43 | Outpatient (RCR) | payer OTHER, SELFPAY ==
[2024-04-28 09:56] VITALS: BP 129/80; PULSE 65
--- NOTE | 2024-04-28 10:34 | MHC.PT.EP ---
[facility] [place] Office [place] [facility] [place] [facility] [address] Jaiden Rubio [address] [phone] F: [phone] F: [phone] F: [phone] F: [phone] Physical Therapy Plan of Care Date of Evaluation: 04/28/24 Diagnosis: BPPV; vestibular therapy Assessment: 48 y/o female referred to PT with BPPV. Pt reports vertigo for several years that comes and goes; she will have it for a few months and then it will clear for a few months. It does not impact her daily routines, but aggravated with looking up/ down, rolling in bed, bending and yoga. Describes vertigo as spinning sensation that lasts a couple seconds. Currently she has not has sx for several weeks. Examination shows normal oculomotor testing, negative B VBI test, gait WNL, and negative for BPPV in [place] and ROll Tests. Pt history is consistent with BPPV, however at this time she may have self corrected. Educated pt on vestibular system, anatomy and function. Also educated pt on treatment and causes. Will keep chart open for 30 days in case recurrence of room-spinning vertigo and if in 30 days, pt has not contacted office, will close chart. Patient in agreement. Frequency and Duration: The patient will be seen 2x/week for 4 weeks if recurrence Short Term Goals: will keep chart open for 30 days in case of room-spinning dizziness recurrence. Currently negative Rodding Machine Tender Goals: Treatment Plan: Neuromuscular re-education for posture and balance. Therapeutic activities to return to functional activities of daily living. Electronically signed by: Ashli Smith PT Please sign and return to therapist. Thank you for your referral.
--- NOTE | 2024-06-02 09:22 | MHC.PT.DC ---
[facility] [place] Office [place] Office [place] Office [address] Jaiden Rubio [address] [phone] F: [phone] F: [phone] F: [phone] F: [phone] Physical Therapy Discharge Report Diagnosis: BPPV vestibular therapy Date of Surgery: Date of Evaluation: 04/28/24 Date of Discharge: 06/02/24 Treatments to Date: 1 Cancellations to Date: 0 No Shows to Date: 0 Discharge Status: Discharge Summary: Pt came in for initial evaluation with subjective consistent with BPPV, however she had not experienced sx in several weeks. Upon assessment, pt negative in all testing positions and she may have self corrected. Pt was educated pt on vestibular system, anatomy and function, treatment and causes. Kept chart open for 30 days in case recurrence of room-spinning vertigo and at this time, pt has not contacted office, therefore will close chart. Patient was in agreement of this plan at time of evaluation Electronically signed by: Ashli Smith PT Please sign and return to therapist. Thank you for your referral.
== END 2024-06-02 09:22 | disposition home or self-care (01) ==
LOC: HO.PT 09:43
PROVIDERS: PCP Internal Medicine; Visit Provider Internal Medicine
DX: H81.10 Benign paroxysmal vertigo, unspecified ear (principal)
CPT/HCPCS: 97110; 97161

== ENCOUNTER 2024-05-05 09:33 | Outpatient (REF) | payer OTHER, SELFPAY | END 2024-05-05 09:34 | disposition home or self-care (01) | LOC: HO.MAMMO 09:33 | PROVIDERS: PCP Internal Medicine; Visit Provider Internal Medicine | DX: Z12.31 Encounter for screening mammogram for malignant neoplasm of breast (principal) | CPT/HCPCS: 77063; 77067 ==

== ENCOUNTER → 2024-05-05 09:45 | Outpatient (BNV) | payer OTHER, SELFPAY | PROVIDERS: PCP Internal Medicine; Visit Provider Radiology Diagnostic Radiology | DX: Z12.31 Encounter for screening mammogram for malignant neoplasm of breast (principal) | CPT/HCPCS: 77063; 77067 ==

== ENCOUNTER 2024-09-29 08:07 | Outpatient (AMB) | payer OTHER, SELFPAY ==
--- NOTE | 2024-09-29 08:12 | A.OFFPC_ITS ---
Vital Signs 09/29/24 08:14 Height 5 ft 4 in Weight 137 lb BMI 23.5 BP 120/80 Blood Pressure Location Lt brachial Position Sitting Intake Visit Reasons: thyroid Intake Note: Patient here for a follow up Thyroid Logistics Planning Manager Required: No Accompanied by: Self / Same As Patient Allergies amoxicillin Allergy (Intermediate, Verified 09/29/24 08:45) Rash Medication List - Last Reconciled 09/29/24 by Tresa Caicedo MD cholecalciferol (vitamin D3) 25 mcg PO DAILY 90 days Lactobac no.51-Bifidobact no.4 50 billion cell (up4 Probiotics Ultra) caps PO DAILY levothyroxine 75 mcg PO DAILY 90 days Tobacco use date assessed: 03/24/24 Dental Screening Dental Screen Date: 09/29/24 Did you have a dental visit in the last 12 months?: Yes Did you have a dental problem in the last 6 months where you did not have access to dental care?: No Was dental information given to patient?: Patient has dentist HPI HPI Comments History of Present Illness Details This is a 49-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 Last TSH was normal and this will be repeated. Cholesterol did not require medications but it was elevated and it will repeated since she has done some dietary changes. Had an echocardiogram showing lipomatous hypertrophy of interatrial septum and has family history of early coronary artery disease and I will refer her to Cardiology for this matter. Has trace tricuspid and pulmonic valve regurgitation. Denies any symptoms. Last vitamin-D levels were low and this will be repeated. [facility] Medical History (Updated 09/29/24 @ 10:11 by Tresa Caicedo MD) Vertigo Thyroid disease Pruritus 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 Hypovitaminosis D Physical exam Overweight (BMI 25.0-29.9) Family history of melanoma Surgical History History of appendectomy Family History Mother Hypercholesteremia Breast lump Breast cancer, Onset Age: 74 Father Heart attack Melanoma Hypercholesteremia Stroke Social History Housing: Apartment Alcohol intake: current Alcohol intake frequency: a few times a week Alcohol type: wine Patient Tobacco Use Status: Never used Tobacco e-Cigarette/Vaping Use: Never Used Second Hand Smoke Exposure: No service: No Current occupational status: employed 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 Alex Mcdonald, Erica Moreira, Nam Benjamin and colleagues, with an educational jean from [employer]. Review of Systems Const All systems reviewed & are unremarkable except as noted in HPI and below Card Denies chest pain at rest, Denies chest pain with activity, Denies edema, Denies irregular heart rhythm, Denies claudication, Denies dyspnea, Denies dyspnea on exertion, Denies orthopnea, Denies paroxysmal nocturnal dyspnea and Denies slow heart rate Resp Denies cough, Denies dyspnea and Denies dyspnea on exertion Physical exam (Primary Care) Vital Signs: Last Vital Signs BP 120/80 09/29/24 08:14 BMI result Body Mass Index 23.5 Tobacco/Smoking Status: Tobacco use Status Tobacco use date assessed 03/24/24 09/29/24 08:16 Patient Tobacco Use Status Never used Tobacco 09/29/24 08:16 e-Cigarette/Vaping Use Never Used 09/29/24 08:16 Thrive Assessment: Date of Thrive Assessment Date Thrive assessed 03/24/24 09/29/24 08:16 Resp Effort & Inspection: normal respiratory effort Auscultation: clear to auscultation bilaterally Cardio Jugular venous distension: no JVD Rate: regular rate Rhythm: regular rhythm Heart sounds: S1 normal heart sound present and S2 normal heart sound present Extrem General: Yes full ROM Coding Level of Care Code Est Pt Level 4 (68399) Complex EM visit Add On G2211 Diagnoses Danny's disease E06.3 Hypovitaminosis D E55.9 Hypertrophy of inter-atrial septum I51.7 Pure hypercholesterolemia E78.00 Time Spent (min) 22 Assessment & Plan Assessment & Plan (1) Danny's disease: 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 Monitor TSH. (2) Hypovitaminosis D: Code(s): E55.9 - Vitamin D deficiency, unspecified Category: Medical Plan: Continue vitamin-D supplements. Monitor vitamin-D level. (3) Hypertrophy of inter-atrial septum: Code(s): I51.7 - Cardiomegaly Category: Medical Plan: Referred to cardiology. (4) Pure hypercholesterolemia: Code(s): E78.00 - Pure hypercholesterolemia, unspecified Category: Medical Plan: Continue low-cholesterol diet. Cut down on drinking alcohol. Repeat lipid panel. Orders: Orders Vitamin D 25-OH Total Today E55.9 - Vitamin D deficiency, unspecified Thyroid Stimulating Hormone Today E06.3 - Autoimmune thyroiditis Lipid Panel Today E78.5 - Hyperlipidemia, unspecified Referrals Cardiology Referral I51.7 - Cardiomegaly
[2024-09-29 08:14] VITALS: BP 120/80; BMI 23.5
== END 2024-09-29 08:58 | disposition home or self-care (01) ==
PROVIDERS: PCP Internal Medicine; Visit Provider Internal Medicine
DX: E06.3 Autoimmune thyroiditis (principal); E55.9 Vitamin D deficiency, unspecified; I51.7 Cardiomegaly; E78.00 Pure hypercholesterolemia, unspecified

== ENCOUNTER → 2024-09-29 08:07 | Outpatient (BNVA) | payer OTHER, SELFPAY | PROVIDERS: PCP Internal Medicine; Visit Provider Internal Medicine | DX: E06.3 Autoimmune thyroiditis (principal); E55.9 Vitamin D deficiency, unspecified; I51.9 Heart disease, unspecified; E78.00 Pure hypercholesterolemia, unspecified | CPT/HCPCS: 99212 ==

== ENCOUNTER 2024-10-06 09:31 | Outpatient (REF) | payer OTHER, SELFPAY ==
[2024-10-06 10:53] LABS: Cholesterol 211 mg/dL (<200); HDL Cholesterol 51 mg/dL (>40); LDL Cholesterol Calculated 146 mg/dL (<100); Triglycerides 70 mg/dL (<150)
[2024-10-06 11:10] LABS: Thyroid Stimulating Hormone 0.46 uIU/mL (0.32-4.0); Vitamin D 25-OH Total 20.9 ng/mL (>30)
== END 2024-10-06 09:32 | disposition home or self-care (01) ==
LOC: HO.LAB 09:31
PROVIDERS: PCP Internal Medicine; Visit Provider Internal Medicine
DX: E55.9 Vitamin D deficiency, unspecified (principal); E06.3 Autoimmune thyroiditis; E78.5 Hyperlipidemia, unspecified
CPT/HCPCS: 36415; 80061; 82306; 84443

== ENCOUNTER 2025-02-25 10:53 | Outpatient (AMB) | payer OTHER, SELFPAY ==
[2025-02-25 10:56] VITALS: BP 120/80; PULSE 65; BMI 24.2
--- NOTE | 2025-02-25 10:56 | A.OFFVIS_ITS ---
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 Patient was 49 year female with hyperlipidemia and strong family history for premature coronary artery disease referred here for further evaluation. 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 She lives on the 5th floor and has no elevator and goes up and down 5 flights of stairs many times a day. She also carries groceries up and down the stairs. She does notice sometimes shortness of breath but this is not very bothersome are new or life- limiting at this point time. Denies any exertional chest pain. She is worried about her overall health held. She was noted to have a murmur and had echocardiogram recently which was suggestive of a normal study with no major valvular abnormality. She was referred here for further evaluation from cardiovascular perspective risk stratification given family history on the father's side premature atherosclerotic disease and on mother's side of hyperlipidemia. [facility] Medical History Vertigo Thyroid disease Pruritus 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 Hypovitaminosis D Physical exam Overweight (BMI 25.0-29.9) Family history of melanoma Surgical History History of appendectomy Family History Mother Hypercholesteremia Breast lump Breast cancer, Onset Age: 74 Father Heart attack Melanoma Hypercholesteremia Stroke Social History Housing: Apartment Alcohol intake: current Alcohol intake frequency: a few times a week Alcohol type: wine Patient Tobacco Use Status: Never used Tobacco e-Cigarette/Vaping Use: Never Used Second Hand Smoke Exposure: No service: No Current occupational status: employed Current occupation: teacher for [employer] Current occupational exposures/hazards: No Sexual orientation: Lesbian/Falcon/Homosexual Gender identity: Female Cognitive needs: No Hearing needs: No Vision needs: No Review of Systems Const Denies chills, Denies daytime sleepiness, Denies fatigue, Denies fever(s), Denies frequent falls, Denies poor appetite, Denies snoring, Denies stops breathing during sleep, Denies weakness, Denies weight gain and Denies weight loss Eyes Denies loss of vision ENT Denies dizziness and Denies hearing loss Card Denies chest pain, Denies claudication, Denies leg edema, Denies lightheadedness, Denies palpitations, Denies dyspnea, Denies dyspnea on exertion and Denies orthopnea Resp Denies cough, Denies excessive phlegm production, Denies dyspnea, Denies dyspnea on exertion, Denies snoring and Denies wheezing GI Denies abdominal pain, Denies hematochezia, Denies change in bowel habits, Denies nausea and Denies vomiting Denies urinary frequency and Denies dysuria Musc Denies arthralgias, Denies muscle weakness, Denies numbness and Denies other (frequent falls) Skin/Breast Denies nail changes and Denies rash Neuro Denies Abnormal speech present, Denies dizziness, Denies frequent falls, Denies loss of vision, Denies memory loss, Denies numbness and Denies weakness Psych Denies depression and Denies memory loss Endo Denies fatigue and Denies palpitations Donald/Lymph Reports easy bruising and Reports other (anemia) Aller/Immun Denies wheezing Physical Exam Vital Signs: Last Vital Signs Pulse 65 02/25/25 10:56 BP 120/80 02/25/25 10:56 BMI result Body Mass Index 24.2 Const General: cooperative, comfortable, no acute distress, alert, awake, Physically active and well groomed Nutritional Appearance: average body habitus and well nourished Orientation/consciousness: patient oriented x3 Limitations: no limitations HEENT Head: Yes normocephalic and Yes atraumatic Neck Neck: Yes trachea midline, Yes supple and Yes no JVD Carotids: no bruits Resp Effort & Inspection: normal respiratory effort Auscultation: clear to auscultation bilaterally Cardio Jugular venous distension: no JVD Rate: regular rate Rhythm: regular rhythm Heart sounds: S1 normal heart sound present, S2 normal heart sound present, no click, no gallops, no murmurs and no rubs GI Auscultation: normal bowel sounds Skin General skin exam: no rashes or lesions noted Neuro General: patient oriented x3 and no focal motor deficits Speech: No Abnormal speech present Extrem General: Yes no clubbing, cyanosis or edema Psych Appearance: grossly normal Office Procedures EKG Details: EKG shows normal sinus rhythm normal EKG [id number]-[id number], Complete Assessment & Plan Assessment & Plan (1) Pure hypercholesterolemia: Code(s): E78.00 - Pure hypercholesterolemia, unspecified Category: Medical Plan: Patient with hyperlipidemia with strong family history of premature coronary artery disease. We discussed about evaluation for atherosclerotic in his asymptomatic patient. She was pretty active and can go up and down flight of flights of stairs without significant symptoms which are life-limiting at this point time. I do not think she has any significant symptoms suggestive of myocardial ischemia. Although further workup for coronary atherosclerosis can be pursued. I have suggested her to undergo coronary calcium score to assess for presence of atherosclerotic disease that will then further guide therapy. We discussed about also pursuing another lipid panel along with other lipid markers and inflammatory markers to assess for further cardiovascular risk. We discussed about lifestyle modification with better diet and more . Further roselia atment and management based on the findings of coronary calcium score. If she has any evidence of coronary atherosclerosis she will benefit from lipid modification. This was discussed with her. Will follow up in the clinic in if need be. Thank you for allowing me to partake in his care Orders: Orders CT Coronary Calcium Score 1 Week E78.00 - Pure hypercholesterolemia, unspecified, E78.5 - Hyperlipidemia, unspecified CRP High Sensitivity Today E78.00 - Pure hypercholesterolemia, unspecified Apolipoprotein B Today E78.00 - Pure hypercholesterolemia, unspecified Lipid Panel Today E78.00 - Pure hypercholesterolemia, unspecified Lipoprotein A Today E78.00 - Pure hypercholesterolemia, unspecified Coding Level of Care Code New Pt Level 4 (46370) Complex EM visit Add On G2211 Diagnoses Pure hypercholesterolemia E78.00 CPT Codes EKG - CPT: 16967-Bosiwicqvnjgbuewq, Complete ([id number])
== END 2025-02-25 11:30 | disposition home or self-care (01) ==
PROVIDERS: PCP Internal Medicine; Visit Provider Internal Medicine Cardiovascular Disease
DX: E78.00 Pure hypercholesterolemia, unspecified (principal); I51.7 Cardiomegaly
CPT/HCPCS: 93010; 99214

== ENCOUNTER → 2025-02-25 10:53 | Outpatient (BNVA) | payer OTHER, SELFPAY | PROVIDERS: PCP Internal Medicine; Visit Provider Internal Medicine Cardiovascular Disease | DX: E78.00 Pure hypercholesterolemia, unspecified (principal) | CPT/HCPCS: 93005 ==

== ENCOUNTER 2025-03-30 08:56 | Outpatient (AMB) | payer OTHER, SELFPAY ==
[2025-03-30 08:59] VITALS: BP 126/80; BMI 23.3
--- NOTE | 2025-03-30 08:59 | MHC.PC.OV ---
Vital Signs 03/30/25 08:59 Height 5 ft 4 in Weight 136 lb BMI 23.3 BP 126/80 Blood Pressure Location Lt brachial Position Sitting Intake Visit Reasons: annual exam Intake Note: Patient here for an annual physical exam Board Hammer Operator Required: No Accompanied by: Self / Same As Patient Allergies amoxicillin Allergy (Intermediate, Verified 03/30/25 09:21) Rash Medication List - Last Reconciled 03/30/25 by Tresa Caicedo MD cholecalciferol (vitamin D3) 25 mcg PO DAILY 90 days Lactobac no.51-Bifidobact no.4 50 billion cell (up4 Probiotics Ultra) caps PO DAILY levothyroxine 75 mcg PO DAILY 90 days Tobacco use date assessed: 03/30/25 Dental Screening Dental Screen Date: 03/30/25 Did you have a dental visit in the last 12 months?: Yes Did you have a dental problem in the last 6 months where you did not have access to dental care?: No Was dental information given to patient?: Patient has dentist HPI HPI Comments History of Present Illness Details This is a 49-year-old female that comes for her physical exam. She needs the Tdap vaccine but prefers to not have it today because she has to go to work after. Last mammogram was 2023 and was normal but she complains about bilateral breast pain at 09:00 and I will order diagnostic mammogram with ultrasound of the breast. She was referred to open access for colonoscopy last year but was too busy and I will refer her again. Has elevated cholesterol despite having a low Laurier risk score and went to see Cardiology which order CT coronary angiography and labs. Pap smear done 2021 and complains of irregular menses and will be follow with OBGYN. Also complains of low back pain that started few weeks ago with no previous trauma. Does not radiates to the legs. Straight leg test negative. PFSH Medical History Vertigo Thyroid disease Pruritus 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 Hypovitaminosis D Physical exam Overweight (BMI 25.0-29.9) Family history of melanoma Surgical History History of appendectomy Family History (Updated 03/30/25 @ 09:31 by Tresa Caicedo MD) Mother Hypercholesteremia Breast lump Breast cancer, Onset Age: 74 Father Heart attack Melanoma Stroke Social History (Updated 03/30/25 @ 09:32 by Tresa Caicedo MD) Housing: Apartment Alcohol intake: former Patient Tobacco Use Status: Never used Tobacco e-Cigarette/Vaping Use: Never Used Second Hand Smoke Exposure: No service: No Current occupational status: employed 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 1. Little interest or pleasure in doing things: not at all 2. Feeling down, depressed, or hopeless: not at all 3. Trouble falling or staying asleep, or sleeping too much: not at all 4. Feeling tired or having little energy: not at all 5. Poor appetite or overeating: not at all 6. Feeling bad about yourself - or that you are a failure or have let yourself or your family down: not at all 7. Trouble concentrating on things, such as reading the newspaper or watching television: not at all 8. Moving or speaking so slowly that other people could have noticed. Or the opposite - being so fidgety or restless that you have been moving around a lot more than usual: not at all 9. Thoughts that you would be better off or of hurting yourself in some way: not at all Total score: 0 Depression Screening Interpretation: Negative Depression Screening Done: Yes 20000 - PHQ-9 Billing: Yes Source: Developed by Drs. Alex Mcdonald, Erica Moreira, Nam Benjamin and colleagues, with an educational jean from [employer]. Thrive Questionnaire Date Thrive assessed: 03/28/25 I am a: Patient What is your living situation today?: I have a steady place to live Within the past 12 months, did the food you bought not last and you didn't have the money to get more?: Never true Within the past 12 months, did you worry whether your food would run out before you got money to buy more?: Never true Do you have trouble paying for medicines?: No Do you have trouble getting transportation to medical appointments?: No Do you have trouble paying your heating and electricity bill?: No Do you have trouble taking care of your child, family member or friend?: No Do you have trouble with day-to-day activities such as bathing, preparing meals, shopping, managing finances, etc.?: No Are you currently unemployed and looking for a job?: No Are you interested in more education?: No Please select the resources that you would like help with: None Currently or been in a relationship where the following occur: No concerns reported THRIVE Score: 0 AUDIT C Alcohol Use Questionnaire (AUDIT-C) 1. How often do you have a drink containing alcohol?: Never Total Score: 0 Score Reviewed/Action Taken: No ANURAG-7 AMB Questionnaire ANURAG-7 Date ANURAG - 7 assessed: 03/30/25 Feeling nervous, anxious, or on edge: 1 = Several days Not being able to stop or control worryin = Not at all Worrying too much about different things: 0 = Not at all Trouble relaxin = Not at all Being so restless that it is hard to sit still: 0 = Not at all Becoming easily annoyed or irritable: 0 = Not at all Feeling afraid as if something awful might happen: 0 = Not at all Total ANURAG-7 score (0-4 normal; 5-9 mild; 10-14 moderate; 15-21 severe): 1 Source: Developed by Drs. Alex Mcdonald, Erica Moreira, Nam Benjamin and colleagues, with an educational jean from [employer]. ANURAG-7 Assessment Billing ANURAG-7 Assessment Tool: ANURAG-7 Assessment 03352 Review of Systems Const All systems reviewed & are unremarkable except as noted in HPI and below Card Denies chest pain at rest, Denies chest pain with activity, Denies edema, Denies irregular heart rhythm, Denies claudication, Denies dyspnea, Denies dyspnea on exertion, Denies orthopnea, Denies paroxysmal nocturnal dyspnea and Denies slow heart rate Resp Denies cough, Denies dyspnea and Denies dyspnea on exertion GI Denies abdominal pain, Denies change in bowel habits, Denies excessive flatus, Denies nausea and Denies vomiting Skin/Breast Denies bleeding lesions, Reports breast pain, Denies changing lesions and Denies rash Neuro Denies lack of coordination Physical exam (Primary Care) Vital Signs: Last Vital Signs BP 126/80 03/30/25 08:59 BMI result Body Mass Index 23.3 Tobacco/Smoking Status: Tobacco use Status Tobacco use date assessed 03/30/25 03/30/25 09:05 Patient Tobacco Use Status Never used Tobacco 03/30/25 09:32 e-Cigarette/Vaping Use Never Used 03/30/25 09:32 PHQ-9: PHQ-9 Score PHQ-9: Total score 0 03/30/25 09:23 Depression Screening Interpretation: Negative Thrive Assessment: Date of Thrive Assessment Date Thrive assessed 03/28/25 03/30/25 09:05 Currently or been in a relationship where the following occur: No concerns reported HENMT Head: Yes normal to inspection, Yes normocephalic and Yes atraumatic Ears: external ears normal Eyes General: appearance normal, both eyes and all related structures Eyelids: Yes eyelids normal Conjunctivae: conjunctivae normal Neck Neck: Yes normal visual inspection and Yes supple Resp Effort & Inspection: normal respiratory effort Auscultation: clear to auscultation bilaterally Cardio Jugular venous distension: no JVD Rate: regular rate Rhythm: regular rhythm Heart sounds: S1 normal heart sound present and S2 normal heart sound present GI Inspection: Yes normal to inspection Palpation (GI): Soft to palpation and nontender Auscultation: normal bowel sounds Back/Spine/Pelvis Thoracic/Lumbar Spine: straight leg raise negative bilaterally Skin General skin exam: no rashes or lesions noted Neuro General: no focal motor deficits Extrem General: Yes full ROM Psych Appearance: grossly normal Coding Level of Care Code Est Pt Level 3 (64160) Est Pt Prev Care 40-64y(05948) Diagnoses Adult general medical exam Z00.00 Lumbar pain M54.50 Breast pain, left N64.4 Breast pain, right N64.4 Additional Codes ANURAG-7 Assessment Billing - ANURAG-7 Assessment Tool: ANURAG-7 Assessment 70592 ([id number]) PHQ-9 - 03778 - PHQ-9 Billing: Yes ([id number]) Time Spent (min) 35 Assessment & Plan Assessment & Plan (1) Adult general medical exam: Code(s): Z00.00 - Encounter for general adult medical examination without abnormal findings Category: Medical (2) Lumbar pain: Code(s): M54.50 - Low back pain, unspecified Category: Medical (3) Breast pain, left: Comment: At 9 o'clock Code(s): N64.4 - Mastodynia Category: Medical (4) Breast pain, right: Comment: at 9 o'clock Code(s): N64.4 - Mastodynia Category: Medical Plan Labs ordered. Ultrasound of the breast bilateral ordered. Diagnostic mammogram ordered. X-ray order for lumbar pain and HLA B27 order to rule out ankylosing spondylitis. Orders: Orders Vitamin D 25-OH Total Today E55.9 - Vitamin D deficiency, unspecified US breast LT limited Today N64.4 - Mastodynia US breast RT limited Today N64.4 - Mastodynia XR lumbar spine 2-3V Today M54.50 - Low back pain, unspecified Thyroid Stimulating Hormone Today E06.3 - Autoimmune thyroiditis Comprehensive [place]. Panel Fast Today Z00.00 - Encounter for general adult medical examination without abnormal findings MM diagnostic mammo BI Today N64.4 - Mastodynia HLA B27 Today M54.50 - Low back pain, unspecified PT Evaluation and Treatment Today M54.50 - Low back pain, unspecified Referrals Open Access Screening Colonoscopy Referral Z12.12 - Encounter for screening for malignant neoplasm of rectum
== END 2025-03-30 09:45 | disposition home or self-care (01) ==
LOC: HO.HMCH 08:56
PROVIDERS: PCP Internal Medicine; Visit Provider Internal Medicine
DX: Z00.00 Encounter for general adult medical examination without abnormal findings (principal); M54.50 Low back pain, unspecified; N64.4 Mastodynia

== ENCOUNTER → 2025-03-30 08:56 | Outpatient (BNVA) | payer OTHER, SELFPAY | PROVIDERS: PCP Internal Medicine; Visit Provider Internal Medicine | DX: Z00.00 Encounter for general adult medical examination without abnormal findings (principal); M54.50 Low back pain, unspecified; N64.4 Mastodynia | CPT/HCPCS: 96127 ==

== ENCOUNTER 2025-04-13 08:04 | Outpatient (REF) | payer OTHER, SELFPAY ==
[2025-04-13 09:06] LABS: Alanine Aminotransferase 12 U/L (0-31); Albumin Level 4.1 g/dL (3.5-5.0); Alkaline Phosphatase 48 U/L (39-117); Anion Gap 11 (12-20); Aspartate Amino Transferase 17 U/L (5-31); Bilirubin Total 0.7 mg/dL (0.0-1.0); Blood Urea Nitrogen 11 mg/dL (9-16); Calcium 8.5 mg/dL (8.4-10.2); Carbon Dioxide 23 mmol/L (22-29); Chloride 109 mmol/L (96-108); Cholesterol 200 mg/dL (<200); Estimated Glomerular Filt Rate > 60; Glucose Fasting 94 mg/dL (60-99); HDL Cholesterol 48 mg/dL (>40); LDL Cholesterol Calculated 136 mg/dL (<100); Potassium 3.8 mmol/L (3.3-5.1); Sodium 139 mmol/L (135-145); Total Protein 7.2 g/dL (6.5-8.0); Triglycerides 81 mg/dL (<150)
[2025-04-13 09:30] LABS: Thyroid Stimulating Hormone 0.72 uIU/mL (0.32-4.0); Vitamin D 25-OH Total 22.8 ng/mL (>30)
[2025-04-14 03:24] LABS: CRP High Sensitivity 3.9 mg/L
[2025-04-16 05:44] LABS: Apolipoprotein B 94 mg/dL (<90)
[2025-04-16 07:14] LABS: Lipoprotein A 41 nmol/L (<75)
[2025-04-16 15:48] LABS: HLA B27 Negative (Negative)
== END 2025-04-13 08:05 | disposition home or self-care (01) ==
LOC: HO.LAB 08:04
PROVIDERS: Absent Provider Internal Medicine; PCP Internal Medicine; Visit Provider Internal Medicine Cardiovascular Disease
DX: E78.00 Pure hypercholesterolemia, unspecified (principal); Z00.00 Encounter for general adult medical examination without abnormal findings; E06.3 Autoimmune thyroiditis; E55.9 Vitamin D deficiency, unspecified; M54.50 Low back pain, unspecified
CPT/HCPCS: 36415; 80053; 80061; 82172; 82306; 83695; 84443; 86141; 86812

== ENCOUNTER 2025-04-16 07:17 | Outpatient (REF) | payer OTHER, SELFPAY ==
--- NOTE | ~2025-04-16 | XR_ITS ---
CLINICAL HISTORY: M54.50 - Low back pain, unspecified Exam: AP, lateral, and spot lateral views of the lumbar spine. Comparison: None. Findings: Bony alignment of the lumbar vertebral bodies is anatomic. No fracture. Disc space heights are well preserved. Impression: Negative lumbar spine radiographs. This document has been electronically signed by: Jeffery Cohen MD on 04/18/2025 09:57:17
== END 2025-04-16 07:18 | disposition home or self-care (01) ==
LOC: HO.XRAY 07:17
PROVIDERS: PCP Internal Medicine; Visit Provider Internal Medicine
DX: M54.50 Low back pain, unspecified (principal)
CPT/HCPCS: 72100

== ENCOUNTER → 2025-04-16 07:20 | Outpatient (BNV) | payer OTHER, SELFPAY | PROVIDERS: PCP Internal Medicine; Visit Provider Radiology Diagnostic Radiology | DX: M54.50 Low back pain, unspecified (principal) | CPT/HCPCS: 72100 ==

== ENCOUNTER 2025-05-03 14:44 | Outpatient (RCR) | payer OTHER, SELFPAY ==
--- NOTE | 2025-05-03 16:18 | MHC.PT.EP ---
[facility] [place] Office [place] Office [place] Office [address] [phone] F: [phone] F: [phone] F: [phone] F: [phone] Physical Therapy Plan of Care Date of Evaluation: 05/03/25 Date of Surgery: N/A Diagnosis: lumbar pain (RL) Assessment: pt is a 49 y/o female presenting to physical therapy w/ referring diagnosis of lumbar pain. I was not able to reproduce her lumbar spine pain and tailbone pain w/ any musculoskeletal testing today. Neurological screen is (-). At this time, I recommended a 30 day hold. In that time she plans to return to a walking program and yoga class and will assess her symptoms w/ general movement. If she does not improve she will call us to get back on the schedule. If I do not hear from her in that time I will D/C the chart. I did recommend importance of following up w/ him analyst and towel weaver to be thorough in her screenings given nighttime waking d/t pain, vagueness of symptoms, and recent change in GI and hormonal symptoms. Frequency and Duration: The patient will be seen Short Term Goals: Organic Chemistry Professor Goals: Treatment Plan: Modalities to reduce pain, spasms and effusion. Manual therapy to restore motion and function. Therapeutic exercise to improve strength and flexibility. Neuromuscular re-education for posture and balance. Therapeutic activities to return to functional activities of daily living. Electronically signed by: Kenna Lainez PT, DPT Please sign and return to therapist. Thank you for your referral.
--- NOTE | 2025-06-27 10:27 | MHC.PT.DC ---
[facility] [place] Office [place] Office [place] Office [address] Jaiden Rubio [address] [phone] F: [phone] F: [phone] F: [phone] F: [phone] Physical Therapy Discharge Report Diagnosis: lumbar pain (RL) Date of Surgery: N/A Date of Evaluation: 05/03/25 Date of Discharge: 06/27/25 Treatments to Date: Cancellations to Date: No Shows to Date: Discharge Status: Recommend MD Follow-up Discharge Summary: I was not able to reproduce her lumbar spine pain and tailbone pain w/ any musculoskeletal testing today. Neurological screen is (-). At this time, I recommended a 30 day hold. In that time she plans to return to a walking program and yoga class and will assess her symptoms w/ general movement. If she does not improve she will call us to get back on the schedule. If I do not hear from her in that time I will D/C the chart. I did recommend importance of following up w/ data capture specialist and dishtank operator to be thorough in her screenings given nighttime waking d/t pain, vagueness of symptoms, and recent change in GI and hormonal symptoms. Electronically signed by: Kenna Lainez PT, DPT Please sign and return to therapist. Thank you for your referral.
== END 2025-06-27 10:28 | disposition home or self-care (01) ==
LOC: HO.PT 14:44
PROVIDERS: PCP Internal Medicine; Visit Provider Internal Medicine
DX: M54.50 Low back pain, unspecified (principal)
CPT/HCPCS: 97161

== ENCOUNTER 2025-05-12 10:18 | Outpatient (REF) | payer OTHER, SELFPAY ==
--- NOTE | ~2025-05-12 | US_ITS ---
EXAMINATION: MM DIAGNOSTIC DIGITAL BREAST TOMOSYNTHESIS, BILATERAL CLINICAL INFORMATION: Bilateral retroareolar breast pain which comes and goes. Patient does not have pain today. COMPARISON: Mammography: Comparison is made with relevant prior exams. TECHNIQUE: Digital breast mammography with tomosynthesis is performed in both the craniocaudal and mediolateral oblique views along with computer-aided detection (CAD). FINDINGS: The breasts are heterogeneously dense, which may obscure small masses (ACR BI-RADS breast composition Category c). There are no significant masses, abnormal calcifications, or other abnormalities. Targeted color Doppler ultrasound scanning in the areas of bilateral breast pain retroareolar regions demonstrates normal fibronodular breast tissue. There is no sonographic abnormal finding bilaterally retroareolar to account for the patient's breast pain. Results are provided to the patient at time of visit by the technologist. US/US breast BI limited mamm only IMPRESSION: No mammographic or sonographic abnormal findings to account for the patient's bilateral retroareolar breast pain. Recommend clinical evaluation follow-up. ASSESSMENT: BI-RADS BI-RADS 1 - Negative RECOMMENDATION: 1 year F/U This patient's information was entered into a reminder system with a target due date for their next mammogram. Electronically signed by: Leydi Mabry DO 05/12/2025 11:41 AM EDT
== END 2025-05-12 10:19 | disposition home or self-care (01) ==
LOC: HO.MAMMO 10:18
PROVIDERS: PCP Internal Medicine; Visit Provider Internal Medicine
DX: N64.4 Mastodynia (principal)
CPT/HCPCS: 76642; 77062; 77066

== ENCOUNTER → 2025-05-12 10:30 | Outpatient (BNV) | payer OTHER, SELFPAY | PROVIDERS: PCP Internal Medicine; Visit Provider Internal Medicine | DX: N64.4 Mastodynia (principal) | CPT/HCPCS: 76642; 77062; 77066 ==

== ENCOUNTER 2025-06-07 14:44 | Outpatient (AMB) | payer OTHER, SELFPAY ==
[2025-06-07 14:49] VITALS: BP 121/61; PULSE 63; BMI 23.3
--- NOTE | 2025-06-07 14:49 | MHC.OFFVIS ---
Vital Signs 06/07/25 14:49 Height 5 ft 4 in Weight 136 lb BMI 23.3 BP 121/61 Blood Pressure Location Lt brachial Position Sitting Pulse 63 Oxygen Delivery Method Room Air Intake Visit Reasons: abdominal pain Intake Note: Patient new consult for abdominal pain and pre colonoscopy screening/Teresita lindo caro was 06/24/2022. Patient cc: lower back discomfort radiating to the middle front of abdomen. Denies any other GI issues. Autocad Draftsman Required: No Accompanied by: Self / Same As Patient Allergies amoxicillin Allergy (Intermediate, Verified 06/07/25 14:54) Rash Medication List - Last Reconciled 06/07/25 by Alexa Lovett CNP atorvastatin 20 mg PO BEDTIME cholecalciferol (vitamin D3) 25 mcg PO DAILY 90 days levothyroxine 75 mcg PO DAILY 90 days magnesium 200 mg PO DAILY multivitamin 1 tab PO DAILY omega 9-wts-mgo-fish oil 120-180-500 mg (Fish Oil) caps PO turmeric mg PO HPI HPI abdominal pain: Details: Patient is a 49-year-old female with PMH of overweight and thyroid disease. Last visit with ALYSA Aleman 06/24/2022 for pre colonoscopy screening. Nathalie presents with several months of increased abdominal gas and bloating, first noted in February or March 2025. She describes associated lower back discomfort, most noticeable early mornings around 4 am, characterized as tightness rather than pain, without radiation to the front and without limitation of mobility or daily activities. She reports regular bowel movements, with only occasional periods of less productive stools, and denies diarrhea, blood in stools, nausea, vomiting, reflux, or dysphagia. She has not noticed any clear aggravating or relieving factors for her GI symptoms, and no consistent temporal pattern except for the back discomfort being worse in the pharmacy associate. There is a history of two menstrual periods in February, which is unusual for her, raising concern for perimenopausal changes. No urinary symptoms, and has been ruled out. She has had a normal back X-ray and recent labs (electrolytes, kidney, liver) were reassuring. She is working with a functional PRICING INTERN and community health educator, and has recently increased her vitamin D supplementation. She is not currently taking a statin despite being prescribed one for hypercholesterolemia. Recent mammogram and breast ultrasound were normal. She is interested in further evaluation for perimenopausal symptoms and is awaiting a gynecology appointment. Social hx: -abstinent from alcohol for ~1 year -denies recreational drug use -non-smoker -Diet: Varied; recently stopped daily boogie latte (caffeine reduction) - family hx as below -denies personal hx of CA -denies significant cardiopulmonary history -tolerated anesthesia in the past without difficulty. 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 D Physical exam Overweight (BMI 25.0-29.9) Family history of melanoma Surgical History History of appendectomy Family History Mother Hypercholesteremia Breast lump Breast cancer, Onset Age: 74 Father Heart attack Melanoma Stroke Social History Housing: Apartment Alcohol intake: former Patient Tobacco Use Status: Never used Tobacco e-Cigarette/Vaping Use: Never Used Second Hand Smoke Exposure: No service: No Current occupational status: employed Current occupation: teacher for [employer] Current occupational exposures/hazards: No Sexual orientation: Lesbian/Falcon/Homosexual Gender identity: Female Cognitive needs: No Hearing needs: No Vision needs: No Review of Systems Const Reports as per HPI ENT Reports as per HPI Card Reports as per HPI Resp Reports as per HPI GI Reports as per HPI Reports as per HPI Physical Exam Vital Signs: Last Vital Signs Pulse 63 06/07/25 14:49 BP 121/61 06/07/25 14:49 Oxygen Delivery Method Room Air 06/07/25 14:49 BMI result Body Mass Index 23.3 Const General: healthy appearing, no acute distress and well developed Nutritional Appearance: average body habitus Orientation/consciousness: patient oriented x3 HEENT Head: Yes normal to inspection, Yes normocephalic and Yes atraumatic Face and sinus: Yes normal facial exam Eyes General: appearance normal, both eyes and all related structures Neck Neck: Yes normal visual inspection Resp Effort & Inspection: normal respiratory effort, able to speak in complete sentences, no tracheal deviation and symmetric chest movement Auscultation: clear to auscultation bilaterally Cardio Jugular venous distension: no JVD Rate: regular rate Rhythm: regular rhythm Heart sounds: S1 normal heart sound present, S2 normal heart sound present, no gallops and no murmurs GI Inspection: Yes normal to inspection and No distended Palpation (GI): Soft to palpation, not firm, nontender and No hepatosplenomegaly present Auscultation: normal bowel sounds General: Yes no CVA tenderness Back/Spine/Pelvis Back: no CVA tenderness Neuro General: patient oriented x3 Gait exam (Neuro): Normal gait present Psych Appearance: grossly normal Mental Status: mental status grossly normal Speech and movement: Normal speech and movement present Affect: normal affect Attitude: cooperative Thought process: Normal thought process present Thought content: Normal thought content present Insight: Good insight present (Psych) Judgement: Good judgement present (Psych) Assessment & Plan Assessment & Plan (1) Colon cancer screening: Code(s): Z12.11 - Encounter for screening for malignant neoplasm of colon Category: Medical Plan: Age-appropriate screening; prior colonoscopy was ordered but not completed in 2021. No family history of colon cancer. Medications: -prescriptions for laxative tablets and MiraLax sent to pharmacy; instructions for Gatorade purchase and clear liquid diet given. Patient educated on scheduling process, procedure preparation, including avoiding certain foods and ensuring clear liquid intake Advised on necessity for ride post-procedure due to sedation. (2) Abdominal bloating: Code(s): R14.0 - Abdominal distension (gaseous) Category: Medical Plan: Several months of increased gas and bloating without alarm features; possible etiologies include dietary factors, perimenopausal hormonal changes, or less likely, H. pylori infection. Additional Tests: -CBC -Urea breath test for H. pylori -Urinalysis w/ preg to rule out causes of back discomfort Medications:Continue current supplements (vitamin D, magnesium, multivitamin, turmeric, fish oil); confirm doses Lifestyle Modifications: -Trial low FODMAP diet; work with community health educator -Monitor fiber intake and consider types of fiber consumed Follow-Up:8 weeks for symptom reassessment and review of test results; sooner if symptoms worsen (3) Perimenopausal symptoms: Code(s): N95.1 - Menopausal and female climacteric states Category: Medical Plan: Irregular menses, age-appropriate, possible link to GI symptoms and back discomfort Additional Tests:Recommend hormone panel (estrogen, progesterone) via PCP, gynecology, or functional PRICING INTERN Lifestyle Modifications:Continue working with functional PRICING INTERN and community health educator Follow-Up: As per gynecology/PCP recommendations Plan Follow-up in 8 weeks or sooner as needed Time: I spent a total of 40 minutes on the date of encounter which includes: Preparing to see the patient (reviewed previous documentation, test results and medical history) Performing a medically appropriate exam and/or evaluation Ordering medications, tests, and procedures Documenting clinical information in the health record Orders: Orders H Pylori Breath Test Today R14.0 - Abdominal distension (gaseous) UA CC w/rflx Micro + Cult Today M54.50 - Low back pain, unspecified Ur Preg Test Today M54.50 - Low back pain, unspecified Complete Blood Count Auto Diff Today R14.0 - Abdominal distension (gaseous) Medications: New bisacodyl Take four tablets once for 1 day per colonoscopy instructions 5 mg PO ONCE 4 tabs 0RF 1 day polyethylene glycol 3350 (Miralax) per colonoscopy prep instructions 238 grams PO ONCE 238 grams 0RF Coding Level of Care Code New Pt New Pt Level 3 (78958) Patient Type New Diagnoses Colon cancer screening Z12.11 Abdominal bloating R14.0 Perimenopausal symptoms N95.1
== END 2025-06-07 15:40 | disposition home or self-care (01) ==
LOC: HO.HGI 14:45
PROVIDERS: PCP Internal Medicine; Visit Provider Nurse Practitioner Family
DX: Z01.818 Encounter for other preprocedural examination (principal); Z12.11 Encounter for screening for malignant neoplasm of colon; R14.0 Abdominal distension (gaseous); N95.1 Menopausal and female climacteric states
CPT/HCPCS: 99203

== ENCOUNTER 2025-06-10 08:30 | Outpatient (AMB) | payer OTHER, SELFPAY ==
--- NOTE | 2025-06-10 08:43 | AM.OFFVISNUR ---
Intake Visit Reasons: h pylori Allergies amoxicillin Allergy (Intermediate, Verified 06/07/25 14:54) Rash Nursing Note Patient presents for collection of H Pylori breath test. Patient has been fasting for 1 hour (nothing to eat, drink, no chewing gum or smoking) has not taken any antacid medication for at least 2 weeks and has no allergies to artificial sweeteners.?? Assessment & Plan Assessment & Plan (1) Abdominal pain: Code(s): R10.9 - Unspecified abdominal pain Category: Medical (2) Abdominal bloating: Code(s): R14.0 - Abdominal distension (gaseous) Category: Medical Plan Patient presents for collection of H Pylori breath test. Patient has been fasting for 1 hour (nothing to eat, drink, no chewing gum or smoking) has not taken any antacid medication for at least 2 weeks and has no allergies to artificial sweeteners.???This test checks for an overgrowth of bacteria in your stomach. We all have bacteria but some may have more than others. It is treatable. if the test comes back negative there is nothing else to do. If the test result is positive we will treat you with 2 antibiotics and a medication to decrease the acid in your stomach (PPI) for 2 weeks. Two weeks after you have completed the treatment we will retest you to make sure the overgrowth has resolved. Patient Instructions: Process for specimen collection and reason for testing was explained to the patient. Specimen collection. Patient instructed to take a deep breath and then exhale into the blue bag, filling it up as much as possible. Patient instructed to drink a mixture of water and the artificial sweetener with a straw. A 15 minute wait period was observed. Patient instructed to take a deep breath and then exhale into the pink bag, filling it up as much as possible Coding Level of Care Code Established Pt Est Pt Level 1 (19241) Patient Type Established Medical Decision Making Straight Forward Diagnoses Abdominal pain R10.9 Abdominal bloating R14.0
== END 2025-06-10 09:02 | disposition home or self-care (01) ==
LOC: HO.HGI 08:31
PROVIDERS: PCP Internal Medicine; Visit Provider Nurse Practitioner Family
DX: R10.9 Unspecified abdominal pain (principal); R14.0 Abdominal distension (gaseous)
CPT/HCPCS: 99211

== ENCOUNTER 2025-06-10 08:30 | Outpatient (REF) | payer OTHER, SELFPAY | END 2025-06-10 08:31 | disposition home or self-care (01) | LOC: HO.LNP 08:30 | PROVIDERS: PCP Internal Medicine; Visit Provider Nurse Practitioner Family | DX: R14.0 Abdominal distension (gaseous) (principal) | CPT/HCPCS: 83013 ==

== ENCOUNTER 2025-06-21 20:19 | Emergency (ER) | payer OTHER, SELFPAY ==
[2025-06-21 20:26] VITALS: BP 167/73; PULSE 66; RESP 16; TEMP 36.5; O2SAT 99; BMI 23.3
--- NOTE | 2025-06-21 20:27 | ED.ABDPAIN ---
HPI - Abdominal Pain General Chief Complaint: Urogenital-Female Stated Complaint: R sided flank pain Related Data Home Medications ?Medication ?Instructions ?Recorded ?Confirmed magnesium 200 mg tablet 200 mg PO DAILY 06/07/25 06/07/25 multivitamin 1 tab PO DAILY 06/07/25 06/07/25 omega 7-pzn-rbi-fish oil 120 cap PO 06/07/25 06/07/25 mg-180 mg-500 mg capsule (Fish Oil) turmeric 400 mg capsule mg PO 06/07/25 06/07/25 Previous Rx's ?Medication ?Instructions ?Recorded cholecalciferol (vitamin D3) 25 25 mcg PO DAILY 90 days #90 caps 03/31/25 mcg (1,000 unit) capsule atorvastatin 20 mg tablet 20 mg PO BEDTIME #30 tabs 04/14/25 levothyroxine 75 mcg tablet 75 mcg PO DAILY 90 days #90 tabs 05/28/25 bisacodyl 5 mg tablet,delayed 5 mg PO ONCE 1 day #4 tabs 06/07/25 release polyethylene glycol 3350 17 238 g PO ONCE #238 grams 06/07/25 gram/dose oral powder (Miralax) nirmatrelvir 300 mg (150 mg 3 ea PO PER PKG DIR 5 days #30 ea 06/16/25 x2)-ritonavir 100 mg tablet,dose pack (Paxlovid) Allergies Allergy/AdvReac Type Severity Reaction Status Date / Time amoxicillin Allergy Intermediate Rash Verified 06/21/25 20:31 [facility] Past Medical History Medical History (Updated 06/24/25 @ 10:04 by ALYSA Rivera) Perimenopausal symptoms Colon cancer screening Abdominal bloating Vertigo Thyroid disease Pruritus 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 Hypovitaminosis D Physical exam Overweight (BMI 25.0-29.9) Family history of melanoma Surgical History History of appendectomy Family History Family History Mother Hypercholesteremia Breast lump Breast cancer, Onset Age: 74 Father Heart attack Melanoma Stroke Social History Social History Housing: Apartment Alcohol intake: former Patient Tobacco Use Status: Never used Tobacco e-Cigarette/Vaping Use: Never Used Second Hand Smoke Exposure: No Advance Directives: No Advance Directives Information Provided: No service: No Current occupational status: employed 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 Full HPI, ROS, assessment and treatment plan per primary provider in the Main ED. 50 yo female s/p appendectomy in the past with recent COVID infection, completed Paxlovid this morning who presents to the ER for evaluation of right flank pain that started 2 hours ago. + urinary frequency for the last 2 days but hematuria or dysuria. nausea with spitting up prior to coming in. diarrhea with COVID, no blood. mild CVA tenderness on exam. pain currently 7/10. appears well. Plan: labs, UA, imaging per primary provider Reevaluation(s) Reevaluation #1: patient left the ER prior to completing treatment Medical Decision Making Lab Data 06/21/25 20:36 06/21/25 20:36 Labs: Lab Results 06/21/25 06/21/25 Range/Units 20:36 20:58 WBC 7.1 (4.8-10.8) X10*3/uL RBC 4.12 L (4.20-5.50) X10*6/uL Hgb 12.0 (12.0-16.0) g/dl Hct 34.5 L (37.0-47.0) % MCV 83.7 (80.0-98.0) fL MCH 29.1 (27.0-33.0) pg MCHC 34.8 (31.0-35.0) g/dl RDW 11.7 (11.0-16.0) % Plt Count 359 (160-400) X10*3/uL MPV 8.9 L (9.4-12.3) fL Immature Gran % (Auto) 0.1 (0.0-0.4) % Neut % (Auto) 62.8 (45-73) % Lymph % (Auto) 25.4 (20-40) % [place] % (Auto) 10.6 (2-11) % Eos % (Auto) 0.7 (0-4) % Baso % (Auto) 0.4 (0-2) % Lymph # (Auto) 1.8 (1.2-4.9) X10*3/uL [place] # (Auto) 0.8 (0.1-1.2) X10*3/uL Eos # (Auto) 0.1 (0.0-0.4) X10*3/uL Baso # (Auto) 0.0 (0.0-0.2) X10*3/uL Abs Immat Gran (auto) 0.01 (0.00-0.03) X10*3/uL Absolute Neuts (auto) 4.4 (2.0-8.3) x10*3/uL Absolute Nucleated RBC 0.000 (0.0-0.012) X10*3/uL Nucleated RBC % (auto) 0.0 (0.0-0.2) /100WBC Sodium 138 (135-145) mmol/L Potassium 3.6 (3.3-5.1) mmol/L Chloride 106 (96-108) mmol/L Carbon Dioxide 25 (22-29) mmol/L Anion Gap 11 L (12-20) BUN 11 (9-16) mg/dL Creatinine 0.77 (0.5-1.4) mg/dL Estim Creat Clear Calc 77.1 Estimated GFR > 60 Random Glucose 127 H (60-115) mg/dL Calcium 8.5 (8.4-10.2) mg/dL Magnesium 2.1 (1.6-2.6) mg/dL Total Bilirubin 0.2 (0.0-1.0) mg/dL Direct Bilirubin < 0.2 (0.0-0.5) mg/dL AST 18 (5-31) U/L ALT 22 (0-31) U/L Alkaline Phosphatase 45 (39-117) U/L Total Protein 7.6 (6.5-8.0) g/dL Albumin 4.2 (3.5-5.0) g/dL Urine Color Yellow Urine Appearance Cloudy Urine pH 5.0 (5.0-9.0) Ur Specific [place] 1.025 (1.005-1.025) Urine Protein 30 (1+) H (Neg-Trace) mg/dL Urine Glucose (UA) Negative (Negative) mg/dL Urine Ketones Trace (Negative) mg/dL Urine Blood Large (3+) H (Negative) Urine Nitrite Negative (Negative) Ur Leukocyte Esterase Trace H (Negative) Urine RBC >20 H (0-2) /HPF Urine WBC 11-20 H (0-5) /HPF Ur Squamous Epith Cells 11-20 (0-2) /HPF Urine Bacteria 4+ (None Seen) Hyaline Casts 0-2 (0-2) /LPF Discharge Plan Discharge Clinical Impression: Acute abdominal pain in right flank Patient Disposition: Left W/O Completing Treatment Prescriptions: No Action cholecalciferol (vitamin D3) 25 mcg (1,000 unit) capsule 25 mcg PO DAILY 90 Days Qty: 90 2RF atorvastatin 20 mg tablet 20 mg PO BEDTIME Qty: 30 5RF levothyroxine 75 mcg tablet 75 mcg PO DAILY 90 Days Qty: 90 0RF Paxlovid 300 mg (150 mg x 2)-100 mg tablets,dose pack 3 ea PO PER PKG DIR 5 Days Qty: 30 0RF multivitamin Tablet 1 tab PO DAILY magnesium 200 mg tablet 200 mg PO DAILY Fish Oil 120-180-500 mg capsule PO turmeric 400 mg capsule PO bisacodyl 5 mg tablet,delayed release (DR/EC) 5 mg PO ONCE 1 Days Qty: 4 0RF Rx Instructions: Take four tablets once for 1 day per colonoscopy instructions polyethylene glycol 3350 [Miralax] 17 gram/dose powder 238 g PO ONCE Qty: 238 0RF Rx Instructions: per colonoscopy prep instructions Discharge Date/Time: 06/21/25 23:22
[2025-06-21 20:40] LABS: MANUAL DIFF FLAG NO
[2025-06-21 20:41] LABS: Hematocrit 34.5 % (37.0-47.0); Hemoglobin 12.0 g/dl (12.0-16.0); Imm Gran Abs Auto 0.01 X10*3/uL (0.00-0.03); Imm Gran Pct Auto 0.1 % (0.0-0.4); Lymphocytes Absolute Auto 1.8 X10*3/uL (1.2-4.9); Mean Corpuscular HGB Conc 34.8 g/dl (31.0-35.0); Mean Corpuscular Hemoglobin 29.1 pg (27.0-33.0); Mean Corpuscular Volume 83.7 fL (80.0-98.0); NRBC Abs Auto 0.000 X10*3/uL (0.0-0.012); NRBC Pct Auto 0.0 /100WBC (0.0-0.2); Platelet Count 359 X10*3/uL (160-400); Red Blood Count 4.12 X10*6/uL (4.20-5.50); White Blood Count 7.1 X10*3/uL (4.8-10.8)
[2025-06-21 20:55] LABS: Alanine Aminotransferase 22 U/L (0-31); Albumin Level 4.2 g/dL (3.5-5.0); Alkaline Phosphatase 45 U/L (39-117); Anion Gap 11 (12-20); Blood Urea Nitrogen 11 mg/dL (9-16); Calcium 8.5 mg/dL (8.4-10.2); Carbon Dioxide 25 mmol/L (22-29); Chloride 106 mmol/L (96-108); Creatinine Clr Calc Pharmacy 77.1; Estimated Glomerular Filt Rate > 60; Magnesium 2.1 mg/dL (1.6-2.6); Potassium 3.6 mmol/L (3.3-5.1); Sodium 138 mmol/L (135-145); Total Protein 7.6 g/dL (6.5-8.0)
[2025-06-21 21:06] LABS: Aspartate Amino Transferase 18 U/L (5-31)
[2025-06-21 21:10] LABS: Appearance Urine Cloudy; Glucose Urine UA Negative (Negative); PH 5.0 (5.0-9.0); Specific Gravity - Urine 1.025 (1.005-1.025); UMIC TRIGGER UACC YES
[2025-06-21 21:39] LABS: UACC Culture Trigger YES
[2025-06-21 23:06] VITALS: BP 132/62; PULSE 70; RESP 18; TEMP 36.8; O2SAT 100
== END 2025-06-21 23:22 | disposition left against medical advice (07) ==
PROVIDERS: Physician Assistant; Emergency Provider Emergency Medicine; PCP Internal Medicine
DX: R10.9 Unspecified abdominal pain (principal); Z79.899 Other long term (current) drug therapy
CPT/HCPCS: 36415; 80048; 80076; 81001; 83735; 85025; 87086; 99282; 99283

== ENCOUNTER 2025-07-21 13:56 | Outpatient (REF) | payer OTHER, SELFPAY ==
[2025-07-21 15:45] LABS: Carcinoembryonic Antigen < 1.73 ng/mL
[2025-07-22 09:04] LABS: CA-125 55 U/mL (<35)
== END 2025-07-21 13:57 | disposition home or self-care (01) ==
LOC: HO.LAB 13:56
PROVIDERS: Absent Provider Obstetrics & Gynecology; PCP Internal Medicine; Visit Provider Nurse Practitioner Family
DX: N83.299 Other ovarian cyst, unspecified side (principal)
CPT/HCPCS: 36415; 82378; 86301; 86304

== ENCOUNTER → 2025-07-22 13:46 | Outpatient (BNVA) | payer OTHER, SELFPAY | PROVIDERS: PCP Internal Medicine; Visit Provider Obstetrics & Gynecology | DX: N83.291 Other ovarian cyst, right side (principal); Z09 Encounter for follow-up examination after completed treatment for conditions other than malignant neoplasm; Z13.89 Encounter for screening for other disorder ==

== ENCOUNTER → 2025-07-22 13:46 | Outpatient (AMB) | payer OTHER, SELFPAY ==
[2025-07-22 13:52] VITALS: BP 138/76; BMI 23.2
--- NOTE | 2025-07-22 13:52 | MHC.OFFVIS ---
Vital Signs 07/22/25 13:52 Height 5 ft 4 in Weight 135 lb BMI 23.2 BP 138/76 Intake Visit Reasons: Labs results Station Baggage Porter Required: No Information Interpreted: non-clinical & clinical Accompanied by: Life Partner Allergies amoxicillin Allergy (Intermediate, Verified 07/22/25 13:52) Rash HPI Comments Details: The patient is presenting for follow-up from an ER visit where she had a CT scan done and showed the following: IMPRESSION: 1. Bilobed complex cystic structure in the right adnexa measuring up to 3.1 x 6.9 cm appears to arise exophytically from the right ovary and contains mobile internal debris with a thick central septation. This finding is indeterminate, but may represent a large complicated cyst versus cystic mass. Can consider further evaluation with nonemergent pelvic MRI. 2. Normal right ovary without evidence of torsion. Left ovary not seen. 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 Hypovitaminosis D Physical exam Overweight (BMI 25.0-29.9) Family history of melanoma Surgical History History of appendectomy Family History Mother Hypercholesteremia Breast lump Breast cancer, Onset Age: 74 Father Heart attack Melanoma Stroke Social History Housing: Apartment Alcohol intake: former Patient Tobacco Use Status: Never used Tobacco e-Cigarette/Vaping Use: Never Used Second Hand Smoke Exposure: No service: No Current occupational status: employed 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 Current occupational exposures/hazards: No Sexual orientation: Lesbian/Falcon/Homosexual Gender identity: Female Cognitive needs: No Hearing needs: No Vision needs: No Female Reproductive History Menstrual Date of last menstrual period: 07/20/25 Review of Systems Const All systems reviewed & are unremarkable except as noted in HPI and below Reports as per HPI and Reports no additional complaints GI Reports no additional complaints Reports no additional complaints Physical Exam Vital Signs: Last Vital Signs BP 138/76 07/22/25 13:52 BMI result Body Mass Index 23.2 Assessment & Plan Assessment & Plan (1) Complex ovarian cyst: Code(s): N83.299 - Other ovarian cyst, unspecified side Category: Medical Plan: AFP, LDH and inhibin ordered Discussed with the patient the differential diagnosis of the findings including but not limited to benign, premalignant or malignant findings, in addition discussed with the patient the false-positive false-negative rate sensitivity and specificity of ovarian cancer tumor marker indicating malignancy. Will refer to [facility] Onc at [facility]. Appointment Dr. Gamez on 08/02/2025 at 09:00 scheduled, the patient is aware All questions answered, the patient verbalized understanding Orders: Orders Lactate Dehydrogenase Today N83.299 - Other ovarian cyst, unspecified side Inhibin A Today N83.299 - Other ovarian cyst, unspecified side Inhibin B Today N83.299 - Other ovarian cyst, unspecified side AFP Quad Screen Today N83.299 - Other ovarian cyst, unspecified side Referrals Gynecologic Oncology Referral N83.299 - Other ovarian cyst, unspecified side Coding Level of Care Code Est Pt Level 3 (27771) Diagnoses Complex ovarian cyst N83.299
== END ==
LOC: HO.HWS 13:46
PROVIDERS: PCP Internal Medicine; Visit Provider Obstetrics & Gynecology
DX: N83.299 Other ovarian cyst, unspecified side (principal)
CPT/HCPCS: 99213

== ENCOUNTER 2025-07-25 08:07 | Outpatient (REF) | payer OTHER, SELFPAY ==
[2025-07-25 08:36] LABS: MANUAL DIFF FLAG NO
[2025-07-25 08:51] LABS: Hematocrit 35.3 % (37.0-47.0); Hemoglobin 12.3 g/dl (12.0-16.0); Imm Gran Abs Auto 0.02 X10*3/uL (0.00-0.03); Imm Gran Pct Auto 0.4 % (0.0-0.4); Lymphocytes Absolute Auto 1.5 X10*3/uL (1.2-4.9); Mean Corpuscular HGB Conc 34.8 g/dl (31.0-35.0); Mean Corpuscular Hemoglobin 29.6 pg (27.0-33.0); Mean Corpuscular Volume 85.1 fL (80.0-98.0); NRBC Abs Auto 0.000 X10*3/uL (0.0-0.012); NRBC Pct Auto 0.0 /100WBC (0.0-0.2); Platelet Count 342 X10*3/uL (160-400); Red Blood Count 4.15 X10*6/uL (4.20-5.50); White Blood Count 5.6 X10*3/uL (4.8-10.8)
[2025-07-25 09:45] LABS: Appearance Urine Clear; Glucose Urine UA Negative (Negative); PH 7.0 (5.0-9.0); Specific Gravity - Urine 1.010 (1.005-1.025)
[2025-07-25 09:46] LABS: UPreg QC Valid YES
== END 2025-07-25 08:08 | disposition home or self-care (01) ==
LOC: HO.LAB 08:07
PROVIDERS: Absent Provider Nurse Practitioner Family; PCP Internal Medicine; Visit Provider Obstetrics & Gynecology
DX: R14.0 Abdominal distension (gaseous) (principal); M54.50 Low back pain, unspecified; N83.299 Other ovarian cyst, unspecified side
CPT/HCPCS: 36415; 81003; 81025; 81511; 82105; 83520; 83615; 85025; 86336

== ENCOUNTER 2025-08-08 15:20 | Outpatient (REF) | payer OTHER, SELFPAY | END 2025-08-08 15:21 | disposition home or self-care (01) | LOC: HO.US 15:20 | PROVIDERS: PCP Internal Medicine; Visit Provider Nurse Practitioner | DX: E06.3 Autoimmune thyroiditis (principal) | CPT/HCPCS: 76536 ==

== ENCOUNTER → 2025-08-08 15:34 | Outpatient (BNV) | payer OTHER, SELFPAY | PROVIDERS: PCP Internal Medicine; Visit Provider Radiology Diagnostic Radiology | DX: E06.3 Autoimmune thyroiditis (principal) | CPT/HCPCS: 76536 ==

== ENCOUNTER 2025-08-11 10:14 | Outpatient (REF) | payer OTHER, SELFPAY ==
--- NOTE | ~2025-08-11 | XR_ITS ---
EXAMINATION: XR CHEST CLINICAL INFORMATION: R63.4 - Abnormal weight loss COMPARISON: 01/02/2023. TECHNIQUE: 2 views of the chest were obtained. FINDINGS: The cardiac, hilar, and mediastinal contours are normal. The lungs are clear bilaterally. There is no pneumothorax or pleural effusion. There is no focal osseous or soft tissue abnormality. XR/XR chest 2V IMPRESSION: Normal chest. Electronically signed by: Gurpreet Taylor MD 08/11/2025 12:14 PM EDT
[2025-08-11 11:44] LABS: MANUAL DIFF FLAG NO
[2025-08-11 11:52] LABS: Hematocrit 37.7 % (37.0-47.0); Hemoglobin 12.9 g/dl (12.0-16.0); Imm Gran Abs Auto 0.02 X10*3/uL (0.00-0.03); Imm Gran Pct Auto 0.3 % (0.0-0.4); Lymphocytes Absolute Auto 1.5 X10*3/uL (1.2-4.9); Mean Corpuscular HGB Conc 34.2 g/dl (31.0-35.0); Mean Corpuscular Hemoglobin 29.5 pg (27.0-33.0); Mean Corpuscular Volume 86.3 fL (80.0-98.0); NRBC Abs Auto 0.000 X10*3/uL (0.0-0.012); NRBC Pct Auto 0.0 /100WBC (0.0-0.2); Platelet Count 389 X10*3/uL (160-400); Red Blood Count 4.37 X10*6/uL (4.20-5.50); White Blood Count 8.0 X10*3/uL (4.8-10.8)
[2025-08-11 12:01] LABS: Total Hemoglobin (HGBA1C) 3335.6932 umol/L
[2025-08-11 12:23] LABS: Cholesterol 188 mg/dL (<200); HDL Cholesterol 41 mg/dL (>40); Iron 106 mcg/dL (30-160); Percent Iron Saturation 32 % (15-50); Total Iron Binding Capacity 331 mcg/dL (228-428); Triglycerides 81 mg/dL (<150); Unsaturated Iron Binding 225 ug/dL
[2025-08-12 08:20] LABS: ~Hepatitis A Antibody IgG 2.41 S/CO (0.00-0.99)
[2025-08-12 08:55] LABS: HBS Num1 30.48 mIU/mL (0-7.99); HBc Num1 0.11 S/CO (0.00-0.79); HBsAGNum1 0.35 S/CO (0.00-0.99); HIV Num 1 0.06 S/CO (0.00-0.99); Hepatitis A Antibody IgM 0.19 Index (0-0.79); Hepatitis B Surface Antigen Negative (Negative); ~HepC Num1 0.10 S/CO (0.00-0.79); ~Hepatitis A Antibody IgM Nonreactive (Nonreactive); ~Hepatitis B Surface Antibody REACTIVE (Nonreactive); ~Hepatitis C Antibody Nonreactive (Nonreactive)
== END 2025-08-11 10:15 | disposition home or self-care (01) ==
LOC: HO.XRAY 10:14
PROVIDERS: PCP Internal Medicine; Visit Provider Nurse Practitioner Family
DX: K21.9 Gastro-esophageal reflux disease without esophagitis (principal); R63.4 Abnormal weight loss; D64.9 Anemia, unspecified; E78.00 Pure hypercholesterolemia, unspecified; Z11.4 Encounter for screening for human immunodeficiency virus [HIV]; Z13.1 Encounter for screening for diabetes mellitus
CPT/HCPCS: 36415; 71046; 80061; 83036; 83540; 85025; 86140; 86704; 86706; 86708; 86709; 86803; 87340; 87389

== ENCOUNTER 2025-08-11 10:14 | Outpatient (AMB) | payer OTHER, SELFPAY ==
--- NOTE | 2025-08-11 10:24 | MHC.OFFVIS ---
Vital Signs 08/11/25 10:32 Height 5 ft 4 in Weight 125 lb BMI 21.5 BP 138/78 Blood Pressure Location Lt brachial Position Sitting Pulse 82 Pulse Source Pulse Oximeter Pulse Oximetry (%) 100 Oxygen Delivery Method Room Air Intake Visit Reasons: abdominal pain Intake Note: Patient follow up for abdominal pain. Patient cc: C.O. bloating persistence, upper abd pain B/L, constipation episode which lasted x1 week but has since resolved. Pt states she did take OTC laxatives which did allow for a BM eventually. Pt reports having multiple new comorbidities including multiple cases of COVID-19, kidney stones, ovarian cysts, etc. Application Support Intern Required: No Accompanied by: Self / Same As Patient Allergies amoxicillin Allergy (Intermediate, Verified 08/11/25 10:25) Rash HPI HPI abdominal pain: Details: Patient is a 49-year-old female with PMH of overweight and thyroid disease. Leonela presents for f/u on ongoing GI sx, including constipation, bloating, burning/tightness in epigastric region, unintentional wt loss (~10 lbs), and adjustment of management plan ahead of scheduled ovarian cyst surgery (w/ planned ? oophorectomy and salpingectomy, poss. further intervention pending genetic results). Pt also has concern regarding optimal pre-op gut health and healing, as well as new symptom updates since last communication. Since prior visit (late May), pt has had acute illness (COVID, treated w/ Paxlovid), developed nephrolithiasis (ER dx + subsequent imaging), and was found to have ovarian cyst, now being followed by [facility]. Reports initial constipation (1 week duration), responsive to OTC bisacodyl-based laxative ([employer] Women's Gentle Laxative), then transition to daily BMs but consistency/size remain altered. Ongoing sx include burning/tightness in epigastrium, intermittent tenderness, bloating, and variable back pain (shifting mid/lower location, nocturnal component), but denies N/V/D, hematochezia, melena, or heartburn/regurgitation. Reports unintentional wt loss (135-138 lbs ? 125 lbs), partially attributed to dietary modifications (?sugars, ?gluten) and cessation of high-sugar beverages, but degree of loss still concerning. Pt notes anxiety over pending surgery scheduled 09/12/25 and ongoing GI sx; seeking reassurance and evaluation prior to scheduled operation. 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 D Physical exam Overweight (BMI 25.0-29.9) Family history of melanoma Surgical History History of appendectomy Family History Mother Hypercholesteremia Breast lump Breast cancer, Onset Age: 74 Father Heart attack Melanoma Stroke Social History Housing: Apartment Alcohol intake: former Patient Tobacco Use Status: Never used Tobacco e-Cigarette/Vaping Use: Never Used Second Hand Smoke Exposure: No service: No Current occupational status: employed Current occupation: teacher for [employer] Current occupational exposures/hazards: No Sexual orientation: Lesbian/Falcon/Homosexual Gender identity: Female Cognitive needs: No Hearing needs: No Vision needs: No Review of Systems Const Reports as per HPI ENT Reports as per HPI Card Reports as per HPI Resp Reports as per HPI GI Reports as per HPI Reports as per HPI Physical Exam Vital Signs: Last Vital Signs Pulse 82 08/11/25 10:32 BP 138/78 08/11/25 10:32 Pulse Ox 100 08/11/25 10:32 Oxygen Delivery Method Room Air 08/11/25 10:32 BMI result Body Mass Index 21.5 Const General: healthy appearing, no acute distress and well developed Nutritional Appearance: average body habitus Orientation/consciousness: patient oriented x3 HEENT Head: Yes normal to inspection, Yes normocephalic and Yes atraumatic Face and sinus: Yes normal facial exam Eyes General: appearance normal, both eyes and all related structures Neck Neck: Yes normal visual inspection Resp Effort & Inspection: normal respiratory effort, able to speak in complete sentences, no tracheal deviation and symmetric chest movement Auscultation: clear to auscultation bilaterally Cardio Jugular venous distension: no JVD Rate: regular rate Rhythm: regular rhythm Heart sounds: S1 normal heart sound present, S2 normal heart sound present, no gallops and no murmurs GI Inspection: Yes normal to inspection and No distended Palpation (GI): Soft to palpation, not firm, nontender and No hepatosplenomegaly present Auscultation: normal bowel sounds Neuro General: patient oriented x3 Gait exam (Neuro): Normal gait present Psych Appearance: grossly normal Mental Status: mental status grossly normal Speech and movement: Normal speech and movement present Affect: normal affect Attitude: cooperative Thought process: Normal thought process present Thought content: Normal thought content present Insight: Good insight present (Psych) Judgement: Good judgement present (Psych) Assessment & Plan Assessment & Plan (1) Abdominal bloating: Code(s): R14.0 - Abdominal distension (gaseous) Category: Medical Plan: Improving frequency of BMs (daily), consistency closer to NL ([place] 3-4), but patient perceives ongoing alteration/fluctuations; bloating and epigastric discomfort persist. Sx arose post-COVID/Paxlovid; alteration in gut zoran, stress, dietary restriction, + overlay of concurrent pelvic pathology. Will exclude biliary origin for epigastric/RUQ pain and constitutional sx;maternal FHx cholecystectomy. Additional testing: - Colonoscopy/EGD?expedited scheduling, incl. for wt loss and profile of GI sx. - completes abd US (urgent order), coordinate result prior to surgery. - Stool studies deferred unless new onset or alarm sx. Medications: - Initiate famotidine 20 mg PO QHS PRN (rx sent; OTC possible)?trial for epigastric burning, tightness. Assess response before escalation to PPI. - Continue OTC bisacodyl only PRN for constipation. Lifestyle: - Continue current high-fluid, low-sugar/gluten regimen as tolerated; maintain dietary adjustments for nephrolithiasis and to minimize reflux. - Encourage regular meals, avoid fasting/skipping. Referrals: - GI endoscopy?support scheduling both colonoscopy and EGD, message sent, but pt encouraged to proactively call. F/U: Reassess in 4 weeks or with lab results; sooner if alarm features (hematochezia, persistent V, intractable pain, fever, obstructive sx). (2) Weight loss: Code(s): R63.4 - Abnormal weight loss Category: Medical Plan: Ongoing, partially situational but not explained by dietary change alone. Further workup warranted before attributing to benign process. Additional testing: - Labs: Iron studies, A1C, hepatitis panel, HIV, repeat CBC - CXR to r/o thoracic malignancy/infectious etiology - Review thyroid panel (already WNL) Medications: N/A at this time. Lifestyle: Encourage high-calorie, nutritionally balanced intake as tolerated; minimize restrictive dietary patterns unless medically indicated. Referrals: N/A beyond current GI/ONC. F/U: Review results via portal, revisit etiology if persistent/progressive loss or concerning findings. Plan Follow-up 4 weeks or sooner as needed Time: I spent a total of 50 minutes on the date of encounter which includes: Preparing to see the patient (reviewed previous documentation, test results and medical history) Performing a medically appropriate exam and/or evaluation Ordering medications, tests, and procedures Documenting clinical information in the health record Orders: Orders US abdomen complete 08/11/25 K21.9 - Gastro-esophageal reflux disease without esophagitis, R10.9 - Unspecified abdominal pain, R14.0 - Abdominal distension (gaseous) XR chest 2V 08/11/25 R63.4 - Abnormal weight loss Hepatitis A,B,C Profile 08/11/25 R63.4 - Abnormal weight loss HIV Ab/Ag 08/11/25 R63.4 - Abnormal weight loss Hepatitis A IgG 08/11/25 R63.4 - Abnormal weight loss Complete Blood Count Auto Diff 08/11/25 D64.9 - Anemia, unspecified IRON PROFILE 08/11/25 D64.9 - Anemia, unspecified Hemoglobin A1c 08/11/25 R63.4 - Abnormal weight loss Medications: New famotidine Take one tablet daily at bedtime as needed 20 mg PO DAILY PRN 90 tabs 1RF GERD Coding Level of Care Code Established Pt Est Pt Level 5 (96096) Patient Type Established Diagnoses Abdominal bloating R14.0 Weight loss R63.4
[2025-08-11 10:32] VITALS: BP 138/78; PULSE 82; O2SAT 100; BMI 21.5
== END 2025-08-11 11:30 | disposition home or self-care (01) ==
LOC: HO.HGI 10:15
PROVIDERS: PCP Internal Medicine; Visit Provider Nurse Practitioner Family
DX: R14.0 Abdominal distension (gaseous) (principal); R63.4 Abnormal weight loss
CPT/HCPCS: 99215

== ENCOUNTER → 2025-08-11 11:44 | Outpatient (BNV) | payer OTHER, SELFPAY | PROVIDERS: PCP Internal Medicine; Visit Provider Radiology Diagnostic Radiology | DX: B34.2 Coronavirus infection, unspecified (principal) | CPT/HCPCS: 71046 ==

== ENCOUNTER 2025-08-17 14:14 | Outpatient (AMB) | payer OTHER, SELFPAY ==
--- NOTE | 2025-08-17 14:39 | MHC.OFFVIS ---
Intake Visit Reasons: kidney stone Intake Note: New patient presents today for initial visit for kidney stones Urology Medication:None Blood Thinner:None Antibiotic Allergies:Amoxicillin Allergies amoxicillin Allergy (Intermediate, Verified 08/17/25 14:39) Rash Medication List - Last Reconciled 08/17/25 by Miroslava Gonzalez MD atorvastatin 20 mg PO BEDTIME famotidine 20 mg PO DAILY PRN levothyroxine 75 mcg PO DAILY 90 days magnesium 200 mg PO DAILY multivitamin 1 tab PO DAILY omega 9-mop-vre-fish oil 120-180-500 mg (Fish Oil) caps PO turmeric mg PO vitamin D3-vitamin K2 25 mcg (1,000 unit)-90 mcg tabs PO DAILY HPI Comments Details: 08/17/2025--Nathalie is a 50-year-old female here today as a new patient evaluation. She had a CAT scan done on 06/23/2025 which noted a 4 mm right UVJ stone with mild hydronephrosis there was an adnexal structure in the pelvis noted. 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 States this the first stone episode. History of Present Illness The patient is a 50-year-old female presenting with evaluation of a ureterovesical junction stone. A CT scan on June 23, 2025, identified a 4 mm stone at the right ureterovesical junction with mild hydronephrosis. She visited the emergency room twice due to pain, which subsided after taking Flomax and analgesics. On July 29, 2025, the patient experienced a recurrence of pain with nausea-like symptoms, managed with Flomax and analgesics, and has not had further pain since. The patient has adjusted her diet to reduce oxalate-rich foods and increased water intake, although the stone passage was not confirmed. She was also diagnosed with an ovarian cyst, for which she is scheduled for [employer] MANAGER surgery, She states she contracted COVID-19 around the time of her kidney stone diagnosis. I have discussed diet modification to decrease risk of forming more kidney stones. I have discussed low oxalate diet and specific foods to avoid including certain green leafy vegetables, chocalate, nuts, tea, beets, rubarb; low sodium, decreased use of animal protein and the importance of hydration drinking up to 2-2.5 liters of fluids and use of adding lemon to water to increase citrate in the diet. A pamphlet is also provided today. Results - CT scan on Jun 23, 2025: 4 mm right ureterovesical junction stone with mild hydronephrosis Plan 1. Ureterovesical Junction Stone - Follow-up ultrasound to confirm stone passage. - 24-hour urine collection to assess mineral excretion and dietary impact. - Dietary modifications to reduce oxalate intake and increase fluid consumption. Diet sheet provided. 2. Hydronephrosis - Monitor with follow-up imaging. 3. Ovarian Cyst - [employer]ANT MANAGER following [facility] Medical History Weight loss Acid reflux Anemia Perimenopausal symptoms Colon cancer screening Abdominal bloating Vertigo Thyroid disease Pruritus 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 Hypovitaminosis D Physical exam Overweight (BMI 25.0-29.9) Family history of melanoma Surgical History History of appendectomy Family History Mother Hypercholesteremia Breast lump Breast cancer, Onset Age: 74 Father Heart attack Melanoma Stroke Social History Housing: Apartment Alcohol intake: former Patient Tobacco Use Status: Never used Tobacco e-Cigarette/Vaping Use: Never Used Second Hand Smoke Exposure: No service: No Current occupational status: employed 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 Current occupational exposures/hazards: No Sexual orientation: Lesbian/Falcon/Homosexual Gender identity: Female Cognitive needs: No Hearing needs: No Vision needs: No Review of Systems Const All systems reviewed & are unremarkable except as noted in HPI and below Reports no additional complaints Eyes Reports no additional complaints ENT Reports no additional complaints Card Reports no additional complaints Resp Reports no additional complaints GI Reports no additional complaints Reports as per HPI Musc Reports no additional complaints Skin/Breast Reports system reviewed and no additional complaints, except as documented Neuro Reports no additional complaints Psych Reports no additional complaints Endo Reports no additional complaints Donald/Lymph Reports no additional complaints Aller/Immun Reports no additional complaints Physical Exam Const General: cooperative, healthy appearing and no acute distress Orientation/consciousness: patient oriented x3 HEENT Head: Yes normal to inspection, Yes normocephalic and Yes atraumatic Eyes Conjunctivae: conjunctivae normal Neck Neck: Yes normal visual inspection and Yes trachea midline Chest Chest palpation & inspection: normal inspection of the chest Resp Effort & Inspection: normal respiratory effort GI Inspection: Yes normal to inspection Palpation (GI): Soft to palpation Neuro General: patient oriented x3 Psych Appearance: grossly normal Assessment & Plan Assessment & Plan (1) Ureteral stone: Code(s): N20.1 - Calculus of ureter Category: Medical (2) Hydronephrosis: Code(s): N13.30 - Unspecified hydronephrosis Category: Medical (3) Ovarian cyst: Code(s): N83.209 - Unspecified ovarian cyst, unspecified side Category: Medical Plan Plan 1. Ureterovesical Junction Stone - Follow-up ultrasound to confirm stone passage. - 24-hour urine collection to assess mineral excretion and dietary impact. - Dietary modifications to reduce oxalate intake and increase fluid consumption. Diet sheet provided. 2. Hydronephrosis - Monitor with follow-up imaging. 3. Ovarian Cyst - [employer]ING [employer]ANT MANAGER following Patient Instructions: The patient had an opportunity to ask questions regarding treatment plan. The patient expressed understanding and agreement with the above treatment plan. The patient is aware they should contact our office by phone for worsening of their current condition or the appearance of new symptoms. Compliance is encouraged with any medications and followup testing that is ordered. It is a privilege to be allowed the opportunity to participate in the urologic care of your patient. If you have any questions or concerns regarding treatment for the above conditions please do not hesitate to contact me. The office telephone contact is [phone]. This note is constructed in part using voice recognition software. While every effort has been made to ensure accuracy sulfuric acid plant supervisor errors may have been included. Yours sincerely, Miroslava Gonzalez MD Scribe Plan - Not visible on output: Patient was informed and verbally consented to the use of an ambient scribe for clinic note documentation during this visit. Coding Level of Care Code New Pt Level 4 (61500) Diagnoses Ureteral stone N20.1 Hydronephrosis N13.30 Ovarian cyst N83.209
== END 2025-08-17 15:24 | disposition home or self-care (01) ==
LOC: HO.HUSH 14:15
PROVIDERS: PCP Internal Medicine; Visit Provider Urology
DX: N20.1 Calculus of ureter (principal); N13.30 Unspecified hydronephrosis; N83.209 Unspecified ovarian cyst, unspecified side
CPT/HCPCS: 99204

== ENCOUNTER 2025-08-19 10:16 | Outpatient (REF) | payer OTHER, SELFPAY ==
--- NOTE | ~2025-08-19 | US_ITS ---
CLINICAL HISTORY: R10.9 - Unspecified abdominal pain --- Additional Notes or Special Instructions: r o hepatopancreatobiliary involvement US abdomen complete Comparison: None provided Findings: The visualized pancreas is normal. The aorta and inferior vena cava are normal caliber. The liver is normal in size and echotexture. There is no intrahepatic bile duct dilatation. The common duct is 3.0 mm in diameter. The gallbladder is normal. There is no sonographic Rai sign. The main portal vein is antegrade. The right kidney is 11.0 cm in length. The left kidney is 10.8 cm in length. There is an echogenic corticalright renal 0.4 cm angiomyolipoma. The spleen is normal. No ascites. IMPRESSION: 1. Right renal angiomyolipoma. No acute findings This document has been electronically signed by: Cleveland Rodriguez MD on 08/20/2025 09:01:14
== END 2025-08-19 10:17 | disposition home or self-care (01) ==
LOC: HO.US 10:16
PROVIDERS: PCP Internal Medicine; Visit Provider Nurse Practitioner Family
DX: R10.9 Unspecified abdominal pain (principal); R14.0 Abdominal distension (gaseous); K21.9 Gastro-esophageal reflux disease without esophagitis
CPT/HCPCS: 76700

== ENCOUNTER → 2025-08-19 10:19 | Outpatient (BNV) | payer OTHER, SELFPAY | PROVIDERS: PCP Internal Medicine; Visit Provider Specialist | DX: D17.71 Benign lipomatous neoplasm of kidney (principal) | CPT/HCPCS: 76700 ==

== ENCOUNTER 2025-08-31 10:18 | Day surgery (SDC) | payer OTHER, SELFPAY ==
--- NOTE | 2025-08-26 12:01 | HO.ANESPROP2 ---
Documented by User: Omayra Lilly NP 08/26/25 12:01 HPI - Anesthesia Eval Consult details Narrative: 50 yr old female for Upper Endoscopy and Colonoscopy [facility] Active Problems Active Problems: All Active Problems (Updated 08/20/25 @ 06:18 by Miroslava Gonzalez MD) Ovarian cyst (Acute) Hydronephrosis (Acute) Ureteral stone (Acute) Weight loss (Acute) Acid reflux (Acute) Anemia (Acute) Complex ovarian cyst (Acute) Nephrolithiasis (Acute) Perimenopausal symptoms (Acute) Colon cancer screening (Acute) Abdominal bloating (Acute) Abdominal pain (Acute) Lumbar pain (Acute) Breast pain, left (Acute) Breast pain, right (Acute) Hypertrophy of inter-atrial septum (Acute) Murmur (Acute) Diarrhea (Acute) Adult general medical exam (Acute) Rash (Acute) Pruritus (Acute) Pure hypercholesterolemia (Acute) Encounter for screening colonoscopy (Acute) BPPV (benign paroxysmal positional vertigo) (Acute) Danny's disease (Acute) Hypovitaminosis D (Acute) Physical exam (Acute) Overweight (BMI 25.0-29.9) (Acute) Family history of melanoma (Acute) Past Medical History Medical History Elevated cholesterol Weight loss Acid reflux Anemia Perimenopausal symptoms Abdominal bloating Vertigo Thyroid disease Pruritus 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 Hypovitaminosis D Overweight (BMI 25.0-29.9) Family history of melanoma Family History Family History Mother Hypercholesteremia Breast lump Breast cancer, Onset Age: 74 Father Heart attack Melanoma Stroke Surgical History Surgical History History of appendectomy Social History Social History Housing: Apartment Alcohol intake: former Patient Tobacco Use Status: Never used Tobacco e-Cigarette/Vaping Use: Never Used Second Hand Smoke Exposure: No Use of substances other than those prescribed or required for medical reasons: No Advance Directives: No Advance Directives Information Provided: Yes service: No Current occupational status: employed 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/hazards: No Sexual orientation: Lesbian/Falcon/Homosexual Gender identity: Female Cognitive needs: No Hearing needs: No Vision needs: No Meds Allergies Allergy/AdvReac Type Severity Reaction Status Date / Time amoxicillin Allergy Intermediate Rash Verified 08/17/25 14:39 Home Medications ?Medication ?Instructions ?Recorded ?Confirmed ?Last Taken ?Type magnesium 200 mg tablet 200 mg PO DAILY 06/07/25 08/26/25 Unknown History multivitamin 1 tab PO DAILY 06/07/25 08/26/25 Unknown History omega 6-ltk-eus-fish oil 120 1 cap PO DAILY 06/07/25 08/26/25 Unknown History mg-180 mg-500 mg capsule (Fish Oil) turmeric 400 mg capsule 400 mg PO DAILY 06/07/25 08/26/25 Unknown History vitamin D3 25 mcg (1,000 unit)-vit 1 tab PO DAILY 08/11/25 08/26/25 Unknown History K2 90 mcg disintegrating tablet Documented by User: Gus Stallworth MD 08/31/25 13:33 [facility] Past Medical History Medical History Elevated cholesterol Weight loss Acid reflux Anemia Perimenopausal symptoms Abdominal bloating Vertigo Thyroid disease Pruritus 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 Hypovitaminosis D Overweight (BMI 25.0-29.9) Family history of melanoma Functional capacity: independent ambulation Patient : No Family History Family History Mother Hypercholesteremia Breast lump Breast cancer, Onset Age: 74 Father Heart attack Melanoma Stroke Family history of problems with anesthesia: No Surgical History Surgical History History of appendectomy History of Problems with Anesthesia: No Social History Social History Housing: Apartment Alcohol intake: former Patient Tobacco Use Status: Never used Tobacco e-Cigarette/Vaping Use: Never Used Second Hand Smoke Exposure: No Use of substances other than those prescribed or required for medical reasons: No Advance Directives: No Advance Directives Information Provided: Yes service: No Current occupational status: employed 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 Sexual orientation: Lesbian/Falcon/Homosexual Gender identity: Female Cognitive needs: No Hearing needs: No Vision needs: No Meds Allergies Allergy/AdvReac Type Severity Reaction Status Date / Time amoxicillin Allergy Intermediate Rash Verified 08/17/25 14:39 Home Medications ?Medication ?Instructions ?Recorded ?Confirmed ?Last Taken ?Type magnesium 200 mg tablet 200 mg PO DAILY 06/07/25 08/26/25 Unknown History multivitamin 1 tab PO DAILY 06/07/25 08/26/25 Unknown History omega 5-jnz-yny-fish oil 120 1 cap PO DAILY 06/07/25 08/26/25 Unknown History mg-180 mg-500 mg capsule (Fish Oil) turmeric 400 mg capsule 400 mg PO DAILY 06/07/25 08/26/25 Unknown History vitamin D3 25 mcg (1,000 unit)-vit 1 tab PO DAILY 08/11/25 08/26/25 Unknown History K2 90 mcg disintegrating tablet Exam Exam Date and Time: 08/31/2025 Airway Mallampati Class: II TM Dist: >3cm Loose/Missing/Broken Teeth: No Heart: normal Lungs: normal Other: normal Assessment and Plan Assessment Anesthesia Assessment: Anesthesia Plan Discussed Final Anesthetic Review Family History of Problems with Anesthesia: No History of Problems with Anesthesia: No NPO: Yes ASA Class: II Final Preanesthetic Review: No Changes in Pt Med Stat, Meds/Allgs Chart Reviewed, Consent Obtained/Reviewed and Anes Risks/Benef Reviewed Patient Risk: Low Procedure Risk: Low Anesthetic Plan Anesthetic Plan: MAC: Disposition: Standard PACU
[2025-08-26 14:05] VITALS: BMI 21.5
[2025-08-31 10:37] VITALS: BMI 21.3
[2025-08-31 10:47] VITALS: BP 130/68; PULSE 84; RESP 16; TEMP 37.1; O2SAT 100
[2025-08-31 10:47] LABS: UPreg QC Valid YES
[2025-08-31] MEDS: Lactated Ringers 1,000 ML 100 ML IVCONT (10:48)
--- NOTE | 2025-08-31 13:23 | P.HPSUR_ITS ---
Pre-Procedural Eval Section A - 24 Hr Update-Section A only Date of Service: 08/31/25 Section B - Complete if H&P > 30 days Chief Complaint: gerd,screening,wweight loss,Abdominal distension Relevant Family History (Specify if Yes): No Relevant Social History: None Present Medications: see Short Stay Collaborative assessment Medical History: Significant History (Weight loss Acid reflux Anemia Perimenopa usal symptoms Colon cancer screening Abdominal bloating Vertigo Thyroid disease Pruritus 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 Hypovitaminosis D Physical exam Overweight (BMI 25.0-29.9) Family history of melanoma) History of Previous Operations: Relevant previous surgery/procedure and date(s) ( History of appendectomy) Allergies: Allergies Allergy/AdvReac Type Severity Reaction Status Date / Time amoxicillin Allergy Intermediate Rash Verified 08/17/25 14:39 Review of Systems Sugical H&P ROS: Negative: Constitution, Cardiovascular, Respiratory, Neurological, Psychiatric, Hem-Onc, Allergic/Immunologic, Gastrointestinal, Ge nitourinary, Musculoskeletal, Integumentary, Endocrine and Eyes/Ears/Nose/Throat Exam Surgical H&P Exam: Normal: HEENT, Normal: Heart, Normal: Lungs, Normal: Extremities, Normal: Abdomen, Normal: Skin and Normal: Neurological Plan Diagnosis/Plan: Unchanged I have reviewed the history and physical and performed a pertinent physical examination on my patient. No changes have occurred unless specified. Time Spent With Patient Time: Total time managing care of this patient today ____ minutes.
--- NOTE | 2025-08-31 14:10 | HO.OPN-COLON ---
Colonoscopy Operative Note Operative Note Date of Service: 08/31/25 Narrative: Operative Information Procedure Description: EGD, Colonoscopy Indication: abn bowel habits Anesthesia: MAC FLEXIBLE TRANSORAL UPPER GASTROINTESTINAL ENDOSCOPY AND COLONOSCOPY PROCEDURE NOTE UPPER ENDOSCOPY Consent: Indications for the procedure and potential complications of bleeding, perforation, reaction to medications and missed diagnosis were discussed with the patient and informed consent was obtained. Instrument: Olympus GIF H 190 J mid size upper endoscope Monitoring: Vital signs and clinical assessment, continuous EKG monitoring, Pulse oximetry, Carbon Dioxide monitoring and blood pressure monitoring were done throughout the procedure. Procedure: The patient was placed in the left lateral decubitis position and pre-procedure medications were administered and a bite block was placed. The endoscope was inserted into the mouth and advanced under direct vision to the third part of duodenum. A careful inspection was made as the upper endoscope was withdrawn including a retroflexed examination of the proximal stomach; Findings and interventions are described below. Findings: Larynx:normal Esophagus: GE junction at 36 cm, diaphragm hiatus at 36 cm, normal mucosa- bx taken from GEJ, and distal esophagus Stomach: v mild erythema. Biopsies were obtained. Grade 2 flap valve on retroflexed examination of the cardia. Duodenum: Normal bulb and descending duodenum, Intervention: Biopsies as noted above, COLONOSCOPY Instrument: Olympus variable stiffness pediatric scope 190L Colonoscopy Monitoring: Vital signs and clinical assessment, continuous EKG monitoring, Pulse oximetry, Carbon Dioxide monitoring and blood pressure monitoring were done throughout the procedure. Colon withdrawal time was 10 minutes. Procedure: The patient was placed in the left lateral decubitis position and pre-procedure medications were administered. After a digital rectal examination of the ano-rectum, the video colonoscope was inserted into the rectum and advanced through the colon to the cecum/TI. The colonoscope was slowly withdrawn in a retrograde panoramic fashion and the colon mucosa was carefully examined including a retroflexed view of the rectum. Findings and interventions are described below. Procedure Difficulty: easy Findings: Terminal Ileum-normal, bx taken Bx taken from right and left colon Cecum:normal Ascending Colon: normal Transverse Colon -normal Descending Colon:normal Sigmoid Colon: normal Rectum: Retroflexion with small internal hemorrhoids, grade I Anorectum - normal Colon preparation: [place] Bowel Preparation Scale Right colon; 2 Transverse colon: 2 Left colon; 2 (0 = Unprepared colon segment with mucosa not seen due to solid stool that cannot be cleared. 1 = Portion of mucosa of the colon segment seen, but other areas of the colon segment not well seen due to staining, residual stool and/or opaque liquid. 2 = Minor amount of residual staining, small fragments of stool and/or opaque liquid, but mucosa of colon segment seen well. 3 = Entire mucosa of colon segment seen well with no residual staining, small fragments of stool or opaque liquid) Impression and Post Procedure Diagnosis: Endoscopy Findings: mild gastritis Colonoscopy Findings: internal hemorrhoids Plan: Await Pathology results, also sent for disaccharidase testing Repeat Colonoscopy in 10 years or earlier if clinically indicated High fiber diet leaflet avoid straining at stool, epsom salts and sitz bath, anusol supps or cream Above findings were reviewed with the patient and relevant handouts were provided if indicated.
[2025-08-31 14:17] VITALS: BP 89/52; PULSE 65; RESP 16; TEMP 36.4; O2SAT 98
[2025-08-31 14:32] VITALS: BP 94/58; PULSE 64; RESP 16; TEMP 36.3; O2SAT 100
[2025-09-01 10:46] LABS: E. coli EAEC Not Detected (Not Detect.); E. coli EPEC Not Detected (Not Detect.); E. coli ETEC Not Detected (Not Detect.); E. coli STEC Not Detected (Not Detect.); Shigella sp./EIEC Not Detected (Not Detect.)
[2025-09-07 00:13] LABS: Lactoferrin, Fecal, Quant. <6.25 mcg/mL (<7.25)
[2025-09-07 04:28] LABS: Lactase 8.5 (15.0-45.5); Maltase 137.1 (100.0-224.4); Palatinase 12.4 (5.0-26.3); Sucrase 35.2 (25.0-69.9)
== END 2025-08-31 15:08 | disposition home or self-care (01) ==
PROVIDERS: Nurse Practitioner; PCP Internal Medicine; Visit Provider Internal Medicine Gastroenterology
PROC: (CPT 45380; principal; 2025-08-31 14:00)
DX: Z12.11 Encounter for screening for malignant neoplasm of colon (principal); R14.0 Abdominal distension (gaseous); R63.4 Abnormal weight loss; K21.9 Gastro-esophageal reflux disease without esophagitis; K64.0 First degree hemorrhoids; K29.70 Gastritis, unspecified, without bleeding
CPT/HCPCS: 45380; 43239; 81025; 82657; 83631; 87507; 88305; 88313; 88342; J2704; J3010

== ENCOUNTER → 2025-08-31 10:18 | Outpatient (BNV) | payer OTHER, SELFPAY | PROVIDERS: PCP Internal Medicine; Visit Provider Internal Medicine Gastroenterology | DX: Z12.11 Encounter for screening for malignant neoplasm of colon (principal); K64.0 First degree hemorrhoids; K21.9 Gastro-esophageal reflux disease without esophagitis; K29.70 Gastritis, unspecified, without bleeding | CPT/HCPCS: 43239; 45380 ==

== ENCOUNTER 2025-09-02 09:55 | Outpatient (REF) | payer OTHER, SELFPAY ==
[2025-09-06 14:14] LABS: Immunoglobulin G Subclass 1 500 mg/dL (382-929); Immunoglobulin G Subclass 2 537 mg/dL (241-700); Immunoglobulin G Subclass 3 31 mg/dL (22-178); Immunoglobulin G Subclass 4 26.2 mg/dL (4-86); Immunoglobulin G Total 1076 mg/dL (600-1640)
== END 2025-09-02 09:56 | disposition home or self-care (01) ==
LOC: HO.LAB 09:55
PROVIDERS: PCP Internal Medicine; Visit Provider Internal Medicine Gastroenterology
DX: K52.839 Microscopic colitis, unspecified (principal); R19.7 Diarrhea, unspecified
CPT/HCPCS: 36415; 82784; 82785

== ENCOUNTER 2025-10-25 07:56 | Outpatient (AMB) | payer OTHER, SELFPAY ==
--- NOTE | 2025-10-25 08:07 | A.OFFVIS_ITS ---
Vital Signs 10/25/25 08:08 Height 5 ft 4 in Weight 119 lb BMI 20.4 BP 105/59 L Blood Pressure Location Lt brachial Position Sitting Pulse 67 Intake Visit Reasons: 4 weeks follow up Intake Note: Patient 4 weeks follow up abdominal bloating, lab, X-Ray and EGD/Colonoscopy results Patient denies any GI issues. Examination Grader Required: No Accompanied by: Self / Same As Patient Allergies amoxicillin Allergy (Intermediate, Verified 10/25/25 08:07) Rash HPI HPI 4 weeks follow up: Details: Patient is a 49-year-old female with PMH of overweight and thyroid disease. F/u on recent GI workup: upper endoscopy, colonoscopy, imaging/labs. Pt states overall GI sx improved since surgery and dietary changes; bloating resolved. Noted wt loss over past few months attributed to stress, GI issues, and dietary restriction (now 119 lbs from mid-130s). No recent episodes of abdominal pain, diarrhea, or constipation reported. Constipation episode in July led to discovery of small internal hemorrhoid. Denies new episodes of GI bleeding. Pt has actively avoided triggers (alcohol, caffeine, carbonation); maintains gluten-free diet due to partner?s celiac, but no personal intolerance evidenced. Reports intermittent sensation of solid food ?almost choking??solids more affected than liquids. Continues close f/u with urology for prior nephrolithiasis; pending renal US and 24h urine study. No interim hospitalizations/urgent care visits. No current evidence of anemia, diabetes, hepatitis, or HIV; all recent labs WNL. [facility] Medical History (Updated 10/25/25 @ 08:52 by Alexa Lovett CNP) Internal hemorrhoid Gastritis Elevated cholesterol Weight loss Acid reflux Anemia Perimenopausal symptoms Abdominal bloating Vertigo Thyroid disease Pruritus 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 Hypovitaminosis D Overweight (BMI 25.0-29.9) Family history of melanoma Surgical History History of esophagogastroduodenoscopy (EGD) Hx of colonoscopy History of appendectomy Family History Mother Hypercholesteremia Breast lump Breast cancer, Onset Age: 74 Father Heart attack Melanoma Stroke Social History Housing: Apartment Alcohol intake: former Patient Tobacco Use Status: Never used Tobacco e-Cigarette/Vaping Use: Never Used Second Hand Smoke Exposure: No service: No Current occupational status: employed 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 Current occupational exposures/hazards: No Sexual orientation: Lesbian/Falcon/Homosexual Gender identity: Female Cognitive needs: No Hearing needs: No Vision needs: No Review of Systems Const Reports as per HPI ENT Reports as per HPI Card Reports as per HPI Resp Reports as per HPI GI Reports as per HPI Reports as per HPI Physical Exam Const General: healthy appearing, no acute distress and well developed Nutritional Appearance: average body habitus Orientation/consciousness: patient oriented x3 HEENT Head: Yes normal to inspection, Yes normocephalic and Yes atraumatic Face and sinus: Yes normal facial exam Eyes General: appearance normal, both eyes and all related structures Neck Neck: Yes normal visual inspection Resp Effort & Inspection: normal respiratory effort, able to speak in complete sentences, no tracheal deviation and symmetric chest movement Cardio Jugular venous distension: no JVD Neuro General: patient oriented x3 Gait exam (Neuro): Normal gait present Psych Appearance: grossly normal Mental Status: mental status grossly normal Speech and movement: Normal speech and movement present Affect: normal affect Attitude: cooperative Thought process: Normal thought process present Thought content: Normal thought content present Insight: Good insight present (Psych) Judgement: Good judgement present (Psych) Results Reviewed Results Reviewed: Colonoscopy Operative Note Operative Note Date of Service: 08/31/25 Narrative: Operative Information Procedure Description: EGD, Colonoscopy Indication: abn bowel habits Anesthesia: MAC FLEXIBLE TRANSORAL UPPER GASTROINTESTINAL ENDOSCOPY AND COLONOSCOPY PROCEDURE NOTE UPPER ENDOSCOPY Consent: Indications for the procedure and potential complications of bleeding, perforation, reaction to medications and missed diagnosis were discussed with the patient and informed consent was obtained. Instrument: Olympus GIF H 190 J mid size upper endoscope Monitoring: Vital signs and clinical assessment, continuous EKG monitoring, Pulse oximetry, Carbon Dioxide monitoring and blood pressure monitoring were done throughout the procedure. Procedure: The patient was placed in the left lateral decubitis position and pre-procedure medications were administered and a bite block was placed. The endoscope was inserted into the mouth and advanced under direct vision to the third part of duodenum. A careful inspection was made as the upper endoscope was withdrawn including a retroflexed examination of the proximal stomach; Findings and interventions are described below. Findings: Larynx:normal Esophagus: GE junction at 36 cm, diaphragm hiatus at 36 cm, normal mucosa- bx taken from GEJ, and distal esophagus Stomach: v mild erythema. Biopsies were obtained. Grade 2 flap valve on retroflexed examination of the cardia. Duodenum: Normal bulb and descending duodenum, Intervention: Biopsies as noted above, COLONOSCOPY Instrument: Olympus variable stiffness pediatric scope 190L Colonoscopy Monitoring: Vital signs and clinical assessment, continuous EKG monitoring, Pulse oximetry, Carbon Dioxide monitoring and blood pressure monitoring were done throughout the procedure. Colon withdrawal time was 10 minutes. Procedure: The patient was placed in the left lateral decubitis position and pre-procedure medications were administered. After a digital rectal examination of the ano-rectum, the video colonoscope was inserted into the rectum and advanced through the colon to the cecum/TI. The colonoscope was slowly withdrawn in a retrograde panoramic fashion and the colon mucosa was carefully examined including a retroflexed view of the rectum. Findings and interventions are described below. Procedure Difficulty: easy Findings: Terminal Ileum-normal, bx taken Bx taken from right and left colon Cecum:normal Ascending Colon: normal Transverse Colon -normal Descending Colon:normal Sigmoid Colon: normal Rectum: Retroflexion with small internal hemorrhoids, grade I Anorectum - normal Colon preparation: [place] Bowel Preparation Scale Right colon; 2 Transverse colon: 2 Left colon; 2 (0 = Unprepared colon segment with mucosa not seen due to solid stool that cannot be cleared. 1 = Portion of mucosa of the colon segment seen, but other areas of the colon s egment not well seen due to staining, residual stool and/or opaque liquid. 2 = Minor amount of residual staining, small fragments of stool and/or opaque liquid, but mucosa of colon segment seen well. 3 = Entire mucosa of colon segment seen well with no residual staining, small fragments of stool or opaque liquid) Impression and Post Procedure Diagnosis: Endoscopy Findings: mild gastritis Colonoscopy Findings: internal hemorrhoids Plan: Await Pathology results, also sent for disaccharidase testing Repeat Colonoscopy in 10 years or earlier if clinically indicated High fiber diet leaflet avoid straining at stool, epsom salts and sitz bath, anusol supps or cream Above findings were reviewed with the patient and relevant handouts were provided if indicated. PATHOLOGY Collected: 08/31/25 Location: .[facility] Received: 09/01/25 Diagnosis A. Duodenum, biopsy: Duodenal mucosa within normal limits. B. Stomach, biopsy: Antral-type and oxyntic mucosa with mild chronic inactive inflammation; no Helicobacter organisms seen. C. EG junction, biopsy: - Cardiac-type mucosa with moderate chronic inactive inflammation; no intestinal metaplasia seen. - Squamous epithelium within normal limits. D. Esophagus, distal, biopsy: - Squamous epithelium within normal limits; no inflammation seen. - Detached fragment of small intestinal mucosa within normal limits. See comment. E. Terminal ileum, biopsy: Terminal ileal mucosa within normal limits. F. Colon, right, biopsy: Colonic mucosa within normal limits. G. Colon, left, biopsy: Colonic mucosa within normal limits. H. Rectum, biopsy: Rectal mucosa within normal limits. Comment: The detached fragment of small intestinal tissue in part D is likely a contaminant; however, a focus of intestinal metaplasia/Leon esophagus cannot be entirely excluded. Clinical History Pre-Op Dx: Screening Post-Op Dx: Mild gastritis, hemorrhoids Date of Service: 08/19/25 Procedure(s): US abdomen complete Accession Number(s): [id number] cc: Tresa Barksdale MD; Alexa Lovett CNP~ Reason for Exam: R10.9 - Unspecified abdominal pain CLINICAL HISTORY: R10.9 - Unspecified abdominal pain --- Additional Notes or Special Instructions: r o hepatopancreatobiliary involvement US abdomen complete Comparison: None provided Findings: The visualized pancreas is normal. The aorta and inferior vena cava are normal caliber. The liver is normal in size and echotexture. There is no intrahepatic bile duct dilatation. The common duct is 3.0 mm in diameter. The gallbladder is normal. There is no sonographic Rai sign. The main portal vein is antegrade. The right kidney is 11.0 cm in length. The left kidney is 10.8 cm in length. There is an echogenic corticalright renal 0.4 cm angiomyolipoma. The spleen is normal. No ascites. IMPRESSION: 1. Right renal angiomyolipoma. No acute findings Assessment & Plan Assessment & Plan (1) Gastritis: Comment: 08/31/25 EGD -esophageal intestinal metaplasia/Leon esophagus couldn't be excluded, mild gastritis. Recommendations for repeat in 1 year for mapping. Code(s): K29.70 - Gastritis, unspecified, without bleeding Category: Medical Qualifiers: Gastritis type: unspecified gastritis Chronicity: unspecified Gastritis bleeding: without bleeding Qualified Code(s): K29.70 - Gastritis, unspecified, without bleeding Plan: Rationale: EGD indicated mild gastritis w/ questionable IM/Leon?s, H. pylori neg. Short-term acid suppression recommended, lifestyle triggers minimized. Additional Testing: - Barium swallow (r/o anatomical/functional abnormality assoc w/ dysphagia) - Repeat EGD w/ mapping in 1yr to definitively r/o Leon?s/esophageal IM Medications: - Consider omeprazole 20mg QD x 8-12wk for erosive gastritis and possible esophageal changes. Monitor for SE (PISANO, GI upset, B12/Fe def). - If dysphagia worsens, consider extension/titrate. Lifestyle Recommendations: - Avoid known GI irritants: alcohol, caffeine, carbonation, spicy/greasy/fried foods. - Small, frequent meals; avoid overeating, remain upright after eating. - Individual avoidance of dietary triggers; reinforce slow, mindful eating. - Provided handouts re: Leon?s, IM. Referrals: - GI for repeat upper endoscopy/mapping - Radiology for barium swallow (ordered) F/U Plan: - Return after swallow study for review + sx/status check. - Repeat EGD w/ mapping in 1yr unless sx/concerns prompt earlier eval. - CBC, Fe panel, B12 at next f/u or earlier if sx suggest deficiency. (2) Internal hemorrhoid: Comment: 08/31/25 Colonoscopy complete with adequate prep -normal colon mucosa to TI, small internal hemorrhoids, grade I. Recommendations for repeat in 10 years ( 2034) Code(s): K64.8 - Other hemorrhoids Category: Medical Plan: grade 1 int hemorrhoid, likely related to brief constipation/straining episode; improved/stable. conservative management appropriate. Additional Testing: none at present. Medications: - As needed: topical hydrocortisone/prep-H for pain/itching. Lifestyle Recommendations: - Avoid straining, prolonged sitting/lifting. - Maintain hydration, adequate dietary fiber. - Monitor bowel habits. Referrals: - PCP prn if sx worsen. F/U Plan: - Routine CRC screening in 10yrs (colonoscopy NL). - Symptom-directed f/u if hemorrhoidal sx recur (3) Nephrolithiasis: Code(s): N20.0 - Calculus of kidney Category: Medical Plan: s/p nephrolithiasis, benign renal lipoma on US, f/u w/ urology ongoing. Additional Testing: - Renal US, 24h urine (pending urology). Medications: none from GI standpoint. Lifestyle Recommendations: - Discuss stone prophylaxis w/ urology. Referrals: - Urology prn. F/U Plan: - Coordinate w/ urology for stone/lipoma management. Plan Follow-up after barium swallow study or sooner as needed Time: I spent a total of 36 minutes on the date of encounter which includes: Preparing to see the patient (reviewed previous documentation, test results and medical history) Performing a medically appropriate exam and/or evaluation Ordering medications, tests, and procedures Documenting clinical information in the health record Medications: New omeprazole Take one tablet daily. Best taken on an empty, 30 minutes before eating. 20 mg PO DAILY 90 caps 1RF Coding Level of Care Code Established Pt Est Pt Level 4 (60838) Patient Type Established Diagnoses Gastritis without bleeding, unspecified chronicity, unspecified gastritis type K29.70 Gastritis type: unspecified gastritis Chronicity: unspecified Gastritis bleeding: without bleeding Internal hemorrhoid K64.8 Nephrolithiasis N20.0
[2025-10-25 08:08] VITALS: BP 105/59; PULSE 67; BMI 20.4
== END 2025-10-25 08:45 | disposition home or self-care (01) ==
LOC: HO.HGI 07:56
PROVIDERS: PCP Internal Medicine; Visit Provider Nurse Practitioner Family
DX: K29.70 Gastritis, unspecified, without bleeding (principal); K64.8 Other hemorrhoids; N20.0 Calculus of kidney
CPT/HCPCS: 99214

== ENCOUNTER 2025-11-14 14:30 | Outpatient (REF) | payer OTHER, SELFPAY ==
--- NOTE | ~2025-11-14 | US_ITS ---
EXAMINATION: US KIDNEY BILATERAL HISTORY: N20.0 - Calculus of kidney TECHNIQUE: Real-time grayscale ultrasound imaging of the kidneys was performed and images were reviewed. COMPARISON: Correlation is made with an abdominal ultrasound dated 08/19/2025. FINDINGS: Right kidney: The right kidney measures 10.6 x 4.3 x 5.8 cm. Renal parenchymal echotexture and thickness are normal. There are no masses. There is a tiny cortical calcification at the lower pole. There is no hydronephrosis. Left Kidney: The left kidney measures 10.5 x 5.6 x 4.3 cm. Renal parenchymal echotexture and thickness are normal. There are no masses. There is no hydronephrosis or renal calculi. US/US renal BI IMPRESSION: Tiny cortical calcification at the lower pole of the right kidney. Otherwise unremarkable renal ultrasound. Electronically signed by: Alex Espinoza MD 11/14/2025 03:35 PM [facility] [place]
== END 2025-11-14 14:31 ==
LOC: HO.US 14:30
PROVIDERS: PCP Internal Medicine; Visit Provider Urology
DX: N20.0 Calculus of kidney (principal)
CPT/HCPCS: 76775

== ENCOUNTER → 2025-11-14 14:32 | Outpatient (BNV) | payer OTHER, SELFPAY | PROVIDERS: PCP Internal Medicine; Visit Provider Radiology Diagnostic Radiology | DX: N20.0 Calculus of kidney (principal) | CPT/HCPCS: 76775 ==

== ENCOUNTER 2025-11-15 07:48 | Outpatient (REF) | payer OTHER, SELFPAY ==
--- NOTE | ~2025-11-15 | US_ITS ---
CLINICAL HISTORY: calculus of kidney US Urinary Bladder Comparison: None Findings: The urinary bladder is unremarkable. Prevoid volume: 175 mL. Postvoid volume: 15 mL Ureteral jets are visualized bilaterally. IMPRESSION: Normal urinary bladder. This document has been electronically signed by: Cleveland Rodriguez MD on 11/16/2025 10:09:12
== END 2025-11-15 07:49 | disposition home or self-care (01) ==
LOC: HO.US 07:48
PROVIDERS: PCP Internal Medicine; Visit Provider Urology
DX: N20.0 Calculus of kidney (principal)
CPT/HCPCS: 76857

== ENCOUNTER → 2025-11-15 08:11 | Outpatient (BNV) | payer OTHER, SELFPAY | PROVIDERS: PCP Internal Medicine; Visit Provider Specialist | DX: N20.0 Calculus of kidney (principal) | CPT/HCPCS: 76857 ==